=== PATIENT | female | born 1960 | race Caucasian/White ===

== ENCOUNTER 2018-07-02 11:11 | Inpatient (IN) | payer MEDICAID ==
[2018-07-02] MEDS ORDERED: Sodium Chloride 0.9% 1,000 ML IV ONE (11:39)
[2018-07-02] MEDS ORDERED: Sodium Chloride 0.9% 1,000 ML ONE (11:54)
[2018-07-02 12:08] LABS: INR 1.1; PROTHROMBIN TIME 12.2 SECONDS (9.7-12.2)
[2018-07-02 12:12] LABS: BASO # 0.1 K/uL (0.0-0.2); BASO % 1.2 % (0.0-2.0); EOS # 0.1 K/uL (0.0-0.7); EOS % 2.9 % (0.0-4.0); HEMOGLOBIN 7.4 g/dL (11.0-16.0); LYMPH # 1.4 K/uL (1.0-4.3); LYMPH % 28.9 % (20.0-40.0); MEAN CELL VOLUME 93.7 fL (81.0-99.0); MEAN PLATELET VOLUME 8.5 fL (7.2-11.7); MONO # 0.7 K/uL (0.0-0.8); MONO % 14.2 % (0.0-10.0); NEUT # 2.5 K/uL (1.8-7.0); NEUT % 52.8 % (50.0-75.0); NRBC % 0.1 % (0.0-2.0); RBC 2.47 Mil/uL (3.80-5.20); RED CELL DISTRIBUTION WIDTH 14.2 % (11.5-14.5); WHITE BLOOD COUNT 4.7 K/uL (4.8-10.8)
--- NOTE | 2018-07-02 12:13 | C.PDOC ---
History Of Present Illness 58 y/o female, w/PMhx of HTN, sent to the ER for admission for renal failure by her PMD, . Patient had bloodwork done, her BUN and Creatinine levels were very elevated. 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 P atient denies having fever, chills, CP, SOB, nausea, and vomiting. Time Seen by Provider: 07/02/18 11:35 Chief Complaint (Nursing): Medical Clearance History Per: Patient History/Exam Limitations: no limitations Past Medical History Reviewed: Historical Data, Nursing Documentation, Vital Signs Vital Signs: Last Vital Signs Temp 98.2 F 07/02/18 11:18 Pulse 92 H 07/02/18 11:18 Resp 16 07/02/18 11:18 BP 153/79 H 07/02/18 11:18 Pulse Ox 100 07/02/18 11:18 - Medical History PMH: Anemia, HTN Surgical History: No Surg Hx Family History: States: No Known Family Hx - Social History Hx Alcohol Use: No Hx Substance Use: No - Immunization History Hx Tetanus Toxoid Vaccination: No Hx Influenza Vaccination: No Hx Pneumococcal Vaccination: No Review Of Systems Except As Marked, All Systems Reviewed And Found Negative. Constitutional: Negative for: Fever, Chills Cardiovascular: Negative for: Chest Pain Respiratory: Negative for: Shortness of Breath Gastrointestinal: Negative for: Nausea, Vomiting Physical Exam - Physical Exam Appears: Non-toxic, No Acute Distress Skin: Normal Color, Warm, Dry Head: Atraumatic, Normacephalic Eye(s): bilateral: Normal Inspection Nose: Normal Oral Mucosa: Moist Neck: Supple Chest: Symmetrical Cardiovascular: Rhythm Regular Respiratory: Normal Breath Sounds, No Rales, No Rhonchi, No Wheezing Gastrointestinal/Abdominal: Normal Exam, Soft, No Tenderness, No Guarding, No Rebound Rectal: Heme Negative Neurological/Psych: Oriented x3, Normal Speech ED Course And Treatment - Laboratory Results Result Diagrams: 07/02/18 11:52 07/02/18 11:52 Lab Interpretation: Abnormal ECG: Interpreted By Me ECG Rhythm: Sinus Rhythm Rate From EC O2 Sat by Pulse Oximetry: 100 (RA) Pulse Ox Interpretation: Normal - Radiology CXR: Interpreted by Me CXR Interpretation: Yes: No Acute Disease Reassessment Condition: Unchanged - Physician Consult Information Physician Contacted: Lesvia Triplett Outcome Of Conversation: admit Medical Decision Making Medical Decision Making: Plan: --Labs --CXR --UA --IV Fluids Disposition Discussed With Dr.: Lesvia Triplett Doctor Will See Patient In The: Hospital - Disposition Disposition: HOSPITALIZED Disposition Time: 14:00 Condition: STABLE - POA Present On Arrival: None - Clinical Impression Clinical Impression: Anemia, Renal failure - 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 - Scribe Statement The provider has reviewed the documentation as [facility] the [facility] Provider Attestation All medical record entries made by the Karlieibmaria isabel were at my direction and personally dictated by me. I have reviewed the chart and agree that the record accurately reflects my personal performance of the history, physical exam, medical decision making, and the department course for this patient. I have also personally directed, reviewed, and agree with the discharge instructions and disposition. Decision To Admit - Pt Status Changed To: Hospital Disposition Of: Inpatient - Admit Certification Admit to Inpatient:: After my assessment, the patient will require hospitalization for at least two midnights. This is because of the severity of symptoms shown, intensity of services needed, and/or the medical risk in this patient being treated as an outpatient. - InPatient: Physician Admission Certification: I certify that this patient requires 2 or more midnights of care for the following reason:: Anemia. Renal failure - . Bed Request Type: Regular Patient Diagnosis: Anemia, Renal failure
[2018-07-02 12:15] LABS: ALB/GLOB RATIO 1.1 (1.0-2.1); ALBUMIN 4.4 g/dL (3.5-5.0); CALCIUM 8.8 mg/dl (8.6-10.4)
[2018-07-02] MEDS ORDERED: Sodium Chloride 0.9% 1,000 ML IV SCH (12:15)
[2018-07-02 12:27] LABS: CK-MB 2.19 ng/mL (0.0-3.38); TROPONIN I 0.015 ng/mL (0.00-0.120)
--- NOTE | 2018-07-02 13:04 | RAD ---
Date of service: 07/02/2018 HISTORY: Shortness of breath. COMPARISON: No prior. TECHNIQUE: Chest PA and lateral FINDINGS: LUNGS: No active pulmonary disease. PLEURA: No significant pleural effusion identified. No pneumothorax apparent. CARDIOVASCULAR: No aortic atherosclerotic calcification present No radiographic findings to suggest acute or significant cardiovascular disease. OSSEOUS STRUCTURES: No significant abnormalities. VISUALIZED UPPER ABDOMEN: Normal. OTHER FINDINGS: None. IMPRESSION: No active disease.
[2018-07-02 13:41] LABS: SQUAMOUS EPITHIAL 3 /hpf (0-5); URINE BACTERIA OCC (<OCC); URINE BILIRUBIN NEGATIVE (NEGATIVE); URINE BLOOD 1+ (NEGATIVE); URINE COLOR Straw (YELLOW); URINE GLUCOSE (UA) NORMAL (Normal); URINE LEUKOCYTE ESTERASE 3+ Leu/uL (Negative); URINE PROTEIN 2+ mg/dL (NEGATIVE); URINE UROBILINOGEN NORMAL mg/dL (0.2-1.0)
[2018-07-02 13:44] LABS: URINE CLARITY SLHAZY (Clear)
--- NOTE | 2018-07-02 15:20 | CP.PCM.HP ---
Addendum entered and electronically signed by Aleyda Sanders 07/02/18 16:53: restarted on home Norvasc for BP control. Original Note: <MarilynAleyda Aguilar - Last Filed: 07/02/18 16:23> History of Present Illness - History of Present Illness History of Present Illness: Ms. 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 She has been followed by Dr. Dietrich of [place] when two weeks ago, routine labwork showed elevated BUN/Cr. She was refered to Dr. Dueñas who told her to come to the hospital today. She has no complaints. She regularly urinates about 3-4 per day and once overnight. Over the last year, she reports poor appetite and will occasionally vomit immediately after eating. This happens about once a month and last occurred yesterday; all discomfort resolves immediately after vomiting. She does report stress incontinence and prefers to wear a pad year round to catch her urine when she coughs or sneezes. Also admits to urinary retention most days. Denies dysuria, recent sickness, sick contacts, headaches, dizziness, fainting, fevers. PMD: Karlo PMH: HTN, anemia, ventral hernia, stress incontinence Meds: Amlodipine 10mg po daily, Furosemide 40mg po daily All: NKDA FamHx: Mother - HTN, MGM - HTN SocHx: denies. 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 absent: Chills, Excessive Sweating, Fever, Headache, Increased Appetite, Lethargy, Night Sweats, Snoring, Weight Gain - EENT Eyes: absent: Blurred Vision, Diplopia, Discharge, Photophobia Ears: absent: Decreased Hearing, Ear Discharge, Tinnitus Nose/Mouth/Throat: absent: Change in Voice, Dry Mouth, Dysphagia, Halitosis, Hoarsness, Odynophagia - Cardiovascular Cardiovascular: Pedal Edema. absent: Chest Pain, Chest Pain at Rest, Chest Pain with Activity, Claudication, Dyspnea on Exertion, Edema, Leg Edema, Lightheadedness, Rapid Heart Rate, Slow Heart Rate, Syncope - Respiratory Respiratory: Pain with Coughing. absent: Cough, Dyspnea, Dyspnea on Exertion, Wheezing, Stridor, Pain on Inspiration, Chest Congestion, Excessive Mucous Production Additional comments: exacerbates existing hernia - Gastrointestinal Gastrointestinal: Early Satiety, Vomiting. absent: Abdominal Pain, Belching, Change in Bowel Habits, Coffee Ground Emesis, Constipation, Cramping, Diarrhea, Dyspepsia, Dysphagia, Excessive Flatus, Heartburn, Hematemesis, Nausea, Odynophagia, Temesmus - Genitourinary Genitourinary: Urinary Incontinence, Urinary Frequency. absent: Change in Urinary Stream, Difficulty Urinating, Dysuria, Flank Pain, Hematuria, Pyuria, Urinary Hesitance, Freq UTI - Reproductive: Female Reproductive:Female: Menopausal - Musculoskeletal Musculoskeletal: absent: Arthralgias, Myalgias, Numbness, Tingling - Integumentary Integumentary: Dry Skin. absent: Erythema, Rash, Sores - Neurological Neurological: absent: Abnormal Gait, Abnormal Hearing, Abnormal Speech, Behavioral Changes, Disequilibrium, Dizziness, Numbness, Headaches, Lack of Coordination, Tingling - Endocrine Endocrine: Fatigue - Hematologic/Lymphatic Hematologic: absent: Easy Bleeding, Easy Bruising Past Patient History - Past Medical History & Family History Pertinent Family History: mother - HTN MGM - HTN - Past Social History Smoking Status: Never Smoked Alcohol: None Drugs: Denies - CARDIAC Hx Hypertension: Yes - RENAL Hx Renal Failure: Yes - HEMATOLOGICAL/ONCOLOGICAL Hx Anemia: Yes - PSYCHIATRIC Hx Substance Use: No - SURGICAL HISTORY Hx Surgeries: No - ANESTHESIA Hx Anesthesia: No Meds Allergies/Adverse Reactions: Allergies Allergy/AdvReac Type Severity Reaction Status Date / Time No Known Allergies Allergy Verified 07/02/18 11:23 Physical Exam - Constitutional Appears: Well, No Acute Distress - Head Exam Head Exam: ATRAUMATIC, NORMOCEPHALIC - Eye Exam Eye Exam: EOMI, PERRL Pupil Exam: NORMAL ACCOMODATION - ENT Exam ENT Exam: Mucous Membranes Dry - Respiratory Exam Respiratory Exam: Clear to Auscultation Bilateral, NORMAL BREATHING PATTERN. absent: Rales, Rhonchi, Wheezes - Cardiovascular Exam Cardiovascular Exam: REGULAR RHYTHM, +S1, +S2. absent: Gallop, Rubs, Systolic Murmur - GI/Abdominal Exam GI & Abdominal Exam: Hernia, Normal Bowel Sounds, Soft. absent: Tenderness Additional comments: ventral hernia palpable, easily reducible - Exam External exam: NORMAL EXTERNAL EXAM Additional comments: pad to catch incontinence in place - Extremities Exam Extremities exam: Positive for: normal capillary refill, pedal edema Additional comments: 1+ non pitting edema bilaterally peripheral pulses palpable bilaterally (radial, DP, PT) IV access in R AC - Back Exam Back exam: absent: CVA tenderness (L), CVA tenderness (R) - Neurological Exam Neurological exam: Alert, CN II-XII Intact, Normal Gait, Oriented x3, Reflexes Normal - Psychiatric Exam Psychiatric exam: Normal Affect, Normal Mood - Skin Skin Exam: Dry, Intact, Normal Color, Warm Results - Vital Signs Recent Vital Signs: Last Vital Signs Temp 98.2 F 07/02/18 11:18 Pulse 92 H 07/02/18 14:19 Resp 20 07/02/18 14:19 BP 139/82 07/02/18 14:19 Pulse Ox 95 07/02/18 14:19 - Labs Result Diagrams: 07/02/18 11:52 07/02/18 11:52 Labs: Laboratory Results - last 24 hr 07/02/18 07/02/18 07/02/18 11:52 11:52 11:52 WBC 4.7 L RBC 2.47 L Hgb 7.4 L Hct 23.1 L MCV 93.7 MCH 30.0 MCHC 32.0 L RDW 14.2 Plt Count 308 MPV 8.5 Neut % (Auto) 52.8 Lymph % (Auto) 28.9 Elliott % (Auto) 14.2 H Eos % (Auto) 2.9 Baso % (Auto) 1.2 Neut # (Auto) 2.5 Lymph # (Auto) 1.4 Elliott # (Auto) 0.7 Eos # (Auto) 0.1 Baso # (Auto) 0.1 Retic Count PT 12.2 INR 1.1 Sodium 142 Potassium 5.3 H Chloride 105 Carbon Dioxide 20 L Anion Gap 22 H BUN 88 H Creatinine 6.5 H Est GFR ( Amer) 8 Est GFR (Non-Af Amer) 7 Random Glucose 78 Calcium 8.8 Ferritin Total Bilirubin 0.7 AST 31 ALT 31 Alkaline Phosphatase 161 H CK-MB (Mass) 2.19 Troponin I 0.0150 Total Protein 8.4 H Albumin 4.4 Globulin 4.0 H Albumin/Globulin Ratio 1.1 Urine Color Urine Clarity Urine pH Ur Specific [place] Urine Protein Urine Glucose (UA) Urine Ketones Urine Blood Urine Nitrate Urine Bilirubin Urine Urobilinogen Ur Leukocyte Esterase Urine WBC (Auto) Urine RBC (Auto) Ur Squamous Epith Cells Urine Bacteria Blood Type Antibody Screen 07/02/18 07/02/18 07/02/18 11:52 13:33 14:07 WBC RBC Hgb Hct MCV MCH MCHC RDW Plt Count MPV Neut % (Auto) Lymph % (Auto) Elliott % (Auto) Eos % (Auto) Baso % (Auto) Neut # (Auto) Lymph # (Auto) Elliott # (Auto) Eos # (Auto) Baso # (Auto) Retic Count 3.1 H PT INR Sodium Potassium Chloride Carbon Dioxide Anion Gap BUN Creatinine Est GFR ( Amer) Est GFR (Non-Af Amer) Random Glucose Calcium Ferritin Total Bilirubin AST ALT Alkaline Phosphatase CK-MB (Mass) Troponin I Total Protein Albumin Globulin Albumin/Globulin Ratio Urine Color Straw Urine Clarity [place] Urine pH 6.0 Ur Specific [place] 1.011 Urine Protein 2+ H Urine Glucose (UA) Normal Urine Ketones Negative Urine Blood 1+ H Urine Nitrate Negative Urine Bilirubin Negative Urine Urobilinogen Normal Ur Leukocyte Esterase 3+ H Urine WBC (Auto) 44 H Urine RBC (Auto) 17 H Ur Squamous Epith Cells 3 Urine Bacteria Occ H Blood Type O POSITIVE Antibody Screen Negative 07/02/18 14:07 WBC RBC Hgb Hct MCV MCH MCHC RDW Plt Count MPV Neut % (Auto) Lymph % (Auto) Elliott % (Auto) Eos % (Auto) Baso % (Auto) Neut # (Auto) Lymph # (Auto) Elliott # (Auto) Eos # (Auto) Baso # (Auto) Retic Count PT INR Sodium Potassium Chloride Carbon Dioxide Anion Gap BUN Creatinine Est GFR ( Amer) Est GFR (Non-Af Amer) Random Glucose Calcium Ferritin 103.0 Total Bilirubin AST ALT Alkaline Phosphatase CK-MB (Mass) Troponin I Total Protein Albumin Globulin Albumin/Globulin Ratio Urine Color Urine Clarity Urine pH Ur Specific [place] Urine Protein Urine Glucose (UA) Urine Ketones Urine Blood Urine Nitrate Urine Bilirubin Urine Urobilinogen Ur Leukocyte Esterase Urine WBC (Auto) Urine RBC (Auto) Ur Squamous Epith Cells Urine Bacteria Blood Type Antibody Screen - EKG Data EKG Interpreted by: ER Physician EKG shows normal: Sinus rhythm Assessment & Plan - Assessment and Plan (Free Text) Assessment: Ms. Gem Campa is a 58 year old [place] female PMH HTN, anemia, ventral hernia was referred to [facility] by her clay worker for abnormal labs. She's being treated for a UTI while renal workup is completed. Plan: Acute Renal Failure - unknown if Chronic condition or not, waiting on outpatient labs - EKG unremarkable on admission - CXR (07/02): no active disease - UA on admission: LE 3+, WBC 44, increased bacteria, protein 2+ - PT 12.2, INR 1.1 - Trop 0.0150 on admission - f/u US kidney - f/u Hepatitis panel - f/u Complement studies: C3, C4, total complement - f/u YANI, CRP, ESR, PT/INR - f/u lipid panel - f/u TSH - f/u repeat UA, urine Cx - strict I&Os, weight checks - correct electrolytes prn - Ceftriaxone 1gm IVPB daily (started 07/02: day 1) - Nephro consulted: Dr. Spenser pappas appreciated - Vascular Surgery consulted: Dr. Cosme - help appreciated AVF placement for future dialysis Anemia - H&H 7.4/23.1 on admission - known Hx of anemia - Retic count on admission: 3.1 - Ferritin 103.0 - Stool Occult Blood neg - Type and Screen done - f/u Iron studies: Fe, TIBC - trend with AM labs Hypertension - home Amlodipine 10mg po daily held for ARF - home Furosemide 40mg po daily held for ARF - monitor vitals PPx - DVT: Heparin 5000u sc q8, SCDs - GI: not indicated at this time - Diet: Renal diet - IVF held at this time - Dispo: TONY consulted for dialysis placement upon discharge d/w Dr. Anibal Sanders PGY-1 - Date & Time Date: 07/02/18 Time: 15:30 <Chichi Barnett - Last Filed: 07/04/18 17:25> Results - Vital Signs Recent Vital Signs: Last Vital Signs Temp 98 F 07/03/18 16:00 Pulse 90 10/25/18 16:00 Resp 20 07/03/18 16:00 BP 126/73 07/03/18 16:00 Pulse Ox 96 07/03/18 16:00 - Labs Result Diagrams: 07/04/18 08:27 07/04/18 08:27 Labs: Laboratory Results - last 24 hr 07/03/18 07/03/18 07/03/18 07:14 07:14 07:14 WBC 4.0 L RBC 2.40 L Hgb 7.5 L Hct 22.4 L MCV 93.4 MCH 31.1 H MCHC 33.3 RDW 14.4 Plt Count 313 MPV 8.6 Neut % (Auto) 57.0 Lymph % (Auto) 27.1 Elliott % (Auto) 11.9 H Eos % (Auto) 3.0 Baso % (Auto) 1.0 Neut # (Auto) 2.3 Lymph # (Auto) 1.1 Elliott # (Auto) 0.5 Eos # (Auto) 0.1 Baso # (Auto) 0.0 ESR 95 H PT INR Sodium 143 Potassium 5.1 Chloride 106 Carbon Dioxide 20 L Anion Gap 22 H BUN 82 H Creatinine 6.8 H Est GFR ( Amer) 8 Est GFR (Non-Af Amer) 6 Random Glucose 80 Calcium 8.7 Phosphorus 5.1 H Magnesium 1.4 L Total Bilirubin 0.6 AST 15 ALT 26 Alkaline Phosphatase 142 H C-Reactive Protein 7.70 Total Protein 7.8 Albumin 4.0 Globulin 3.8 Albumin/Globulin Ratio 1.1 Triglycerides 74 Cholesterol 130 LDL Cholesterol Direct 70 HDL Cholesterol 38 TSH 3rd Generation 1.56 Urine Color Urine Clarity Urine pH Ur Specific [place] Urine Protein Urine Glucose (UA) Urine Ketones Urine Blood Urine Nitrate Urine Bilirubin Urine Urobilinogen Ur Leukocyte Esterase Urine WBC (Auto) Urine RBC (Auto) Ur Squamous Epith Cells Urine Bacteria Complement C3 99.0 Complement C4 41.4 Hepatitis A IgM Ab Hep Bs Antigen Negative Hep B Core IgM Ab Hepatitis C Antibody 07/03/18 07/03/18 07/03/18 07:14 07:14 07:27 WBC RBC Hgb Hct MCV MCH MCHC RDW Plt Count MPV Neut % (Auto) Lymph % (Auto) Elliott % (Auto) Eos % (Auto) Baso % (Auto) Neut # (Auto) Lymph # (Auto) Elliott # (Auto) Eos # (Auto) Baso # (Auto) ESR PT 11.8 INR 1.1 Sodium Potassium Chloride Carbon Dioxide Anion Gap BUN Creatinine Est GFR ( Amer) Est GFR (Non-Af Amer) Random Glucose Calcium Phosphorus Magnesium Total Bilirubin AST ALT Alkaline Phosphatase C-Reactive Protein Total Protein Albumin Globulin Albumin/Globulin Ratio Triglycerides Cholesterol LDL Cholesterol Direct HDL Cholesterol TSH 3rd Generation Urine Color Straw Urine Clarity Clear Urine pH 6.0 Ur Specific [place] 1.011 Urine Protein 2+ H Urine Glucose (UA) Normal Urine Ketones Negative Urine Blood Negative Urine Nitrate Negative Urine Bilirubin Negative Urine Urobilinogen Normal Ur Leukocyte Esterase 1+ H Urine WBC (Auto) 22 H Urine RBC (Auto) 2 Ur Squamous Epith Cells 4 Urine Bacteria Rare Complement C3 Complement C4 Hepatitis A IgM Ab Negative Hep Bs Antigen Negative Hep B Core IgM Ab Negative Hepatitis C Antibody Negative Attending/Attestation - Attestation I have personally seen and examined this patient.: Yes I have fully participated in the care of the patient.: Yes I have reviewed all pertinent clinical information: Yes Notes (Text): Seen and examined Patient has renal failure,Acute ?,Likely chronic renal failure due to HTN Denies nause,no vomting,no pruritus continue amlodipine d/w Dr Dueñas Assessment and the plan discussed with the resident and I agree with the documentation
--- NOTE | 2018-07-02 16:53 | CP.PCM.CON ---
History of Present Illness - History of Present Illness History of Present Illness: Vascular surgery consult not for Dr. Cosme Consulted for: PAPO, AVF planning Pt is a 58 y/o female, PMH of HTN, and chronic asymptomatic ventral hernia. Pt was having anual check up and was found to have asymptomatic increased BUN and creatinine (88 & 6.5) and was referred to the ED by per rn neonatal. Upon admission to the ED, she was found to have a UTI but denies any urinary symptoms. As per pt, she is not experiencing any acute pain. She admits to "flu" like illness, including bouts of vomiting and nausea, that ended 2 days ago (06/30/18). In addition, she reports some leg swelling (mild), SOB, and cough. She denies fever, chills, chest pain, palpitations, diarrhea, constipation, pain/burning with urination, or low back pain. She has never had any prior episodes of PAPO per primary PMH: HTN, anemia, chronic asymptomatic ventral hernia (from ) PSH: denies Allergies: denies Social: denies any current or prior tobacco use; denies alcohol Review of Systems - Review of Systems All systems: reviewed and no additional remarkable complaints except (as per HPI) Past Patient History - Past Medical History & Family History Past Medical History?: Yes Past Family History: Reviewed and not pertinent - Past Social History Smoking Status: Never Smoked Alcohol: None Drugs: Denies - CARDIAC Hx Hypertension: Yes - RENAL Hx Renal Failure: Yes - HEMATOLOGICAL/ONCOLOGICAL Hx Anemia: Yes - PSYCHIATRIC Hx Substance Use: No - SURGICAL HISTORY Hx Surgeries: No - ANESTHESIA Hx Anesthesia: No Meds Allergies/Adverse Reactions: Allergies Allergy/AdvReac Type Severity Reaction Status Date / Time No Known Allergies Allergy Verified 07/02/18 11:23 - Medications Medications: Current Medications Heparin Sodium (Porcine) (Heparin) 5,000 units SC Q8 GEENA Ceftriaxone Sodium 1 gm/ (Sodium Chloride) 100 mls @ 100 mls/hr IVPB DAILY GEENA; Protocol Physical Exam - Constitutional Appears: Well, Non-toxic, No Acute Distress - Head Exam Head Exam: ATRAUMATIC, NORMOCEPHALIC - Eye Exam Eye Exam: Normal appearance. absent: Conjunctival injection, Scleral icterus - ENT Exam ENT Exam: Mucous Membranes Moist, Normal Oropharynx - Respiratory Exam Respiratory Exam: NORMAL BREATHING PATTERN. absent: Accessory Muscle Use, Res piratory Distress - Cardiovascular Exam Cardiovascular Exam: RRR - GI/Abdominal Exam GI & Abdominal Exam: Hernia (soft, non-tender ventral hernia), Soft. absent: Distended, Tenderness - Extremities Exam Extremities exam: Positive for: pedal pulses present. Negative for: calf tende rness, pedal edema - Neurological Exam Neurological exam: Alert, Oriented x3 - Psychiatric Exam Psychiatric exam: Normal Affect, Normal Mood - Skin Skin Exam: Dry, Normal Color, Warm Results - Vital Signs Recent Vital Signs: Last Vital Signs Temp 98.1 F 07/02/18 16:00 Pulse 91 H 07/02/18 16:00 Resp 20 07/02/18 16:00 BP 161/86 H 07/02/18 16:00 Pulse Ox 98 07/02/18 16:00 - Labs Result Diagrams: 07/02/18 11:52 07/02/18 11:52 Labs: Laboratory Results - last 24 hr 07/02/18 07/02/18 07/02/18 11:52 11:52 11:52 WBC 4.7 L RBC 2.47 L Hgb 7.4 L Hct 23.1 L MCV 93.7 MCH 30.0 MCHC 32.0 L RDW 14.2 Plt Count 308 MPV 8.5 Neut % (Auto) 52.8 Lymph % (Auto) 28.9 [place] % (Auto) 14.2 H Eos % (Auto) 2.9 Baso % (Auto) 1.2 Neut # (Auto) 2.5 Lymph # (Auto) 1.4 Weston # (Auto) 0.7 Eos # (Auto) 0.1 Baso # (Auto) 0.1 Retic Count PT 12.2 INR 1.1 Sodium 142 Potassium 5.3 H Chloride 105 Carbon Dioxide 20 L Anion Gap 22 H BUN 88 H Creatinine 6.5 H Est GFR ( Amer) 8 Est GFR (Non-Af Amer) 7 Random Glucose 78 Calcium 8.8 Ferritin Total Bilirubin 0.7 AST 31 ALT 31 Alkaline Phosphatase 161 H CK-MB (Mass) 2.19 Troponin I 0.0150 Total Protein 8.4 H Albumin 4.4 Globulin 4.0 H Albumin/Globulin Ratio 1.1 Urine Color Urine Clarity Urine pH Ur Specific [place] Urine Protein Urine Glucose (UA) Urine Ketones Urine Blood Urine Nitrate Urine Bilirubin Urine Urobilinogen Ur Leukocyte Esterase Urine WBC (Auto) Urine RBC (Auto) Ur Squamous Epith Cells Urine Bacteria Stool Occult Blood Blood Type Antibody Screen 07/02/18 07/02/18 07/02/18 11:52 13:33 14:07 WBC RBC Hgb Hct MCV MCH MCHC RDW Plt Count MPV Neut % (Auto) Lymph % (Auto) West[place] % (Auto) Eos % (Auto) Baso % (Auto) Neut # (Auto) Lymph # (Auto) [place] # (Auto) Eos # (Auto) Baso # (Auto) Retic Count 3.1 H PT INR Sodium Potassium Chloride Carbon Dioxide Anion Gap BUN Creatinine Est GFR ( Amer) Est GFR (Non-Af Amer) Random Glucose Calcium Ferritin Total Bilirubin AST ALT Alkaline Phosphatase CK-MB (Mass) Troponin I Total Protein Albumin Globulin Albumin/Globulin Ratio Urine Color Straw Urine Clarity [place] Urine pH 6.0 Ur Specific [place] 1.011 Urine Protein 2+ H Urine Glucose (UA) Normal Urine Ketones Negative Urine Blood 1+ H Urine Nitrate Negative Urine Bilirubin Negative Urine Urobilinogen Normal Ur Leukocyte Esterase 3+ H Urine WBC (Auto) 44 H Urine RBC (Auto) 17 H Ur Squamous Epith Cells 3 Urine Bacteria Occ H Stool Occult Blood Blood Type O POSITIVE Antibody Screen Negative 07/02/18 07/02/18 14:07 15:12 WBC RBC Hgb Hct MCV MCH MCHC RDW Plt Count MPV Neut % (Auto) Lymph % (Auto) [place] % (Auto) Eos % (Auto) Baso % (Auto) Neut # (Auto) Lymph # (Auto) [place] # (Auto) Eos # (Auto) Baso # (Auto) Retic Count PT INR Sodium Potassium Chloride Carbon Dioxide Anion Gap BUN Creatinine Est GFR ( Amer) Est GFR (Non-Af Amer) Random Glucose Calcium Ferritin 103.0 Total Bilirubin AST ALT Alkaline Phosphatase CK-MB (Mass) Troponin I Total Protein Albumin Globulin Albumin/Globulin Ratio Urine Color Urine Clarity Urine pH Ur Specific [place] Urine Protein Urine Glucose (UA) Urine Ketones Urine Blood Urine Nitrate Urine Bilirubin Urine Urobilinogen Ur Leukocyte Esterase Urine WBC (Auto) Urine RBC (Auto) Ur Squamous Epith Cells Urine Bacteria Stool Occult Blood Negative Blood Type Antibody Screen Assessment & Plan - Assessment and Plan (Free Text) Assessment: 58F with PAPO Plan: Left limb alert F/U vein mapping F/U nephrology recs Continue medical management per primary Discussed with Dr. Carmelina Maria, PGY2
[2018-07-02 17:15] LABS: IRON 40 ug/dL (37-170)
--- NOTE | 2018-07-02 17:19 | US ---
Abdominal limited/renal ultrasound Indication: Acute renal failure Comparison: None available. Findings: The liver appears within normal limits of size measuring approximately 17.4cm. Echogenic liver may be seen in setting of hepatic parenchymal disease or fatty infiltration. The main portal vein appears patent with normal directional flow. There is no evidence of intrahepatic ductal dilatation. The common bile duct appears within normal limits of caliber, measuring 6 mm. Gallstones. There is no evidence of gallbladder-wall thickening, pericholecystic fluid, or stones. The patient was not focally tender over the gallbladder. The pancreas was not visualized. The right kidney measures 9.6 x 4.2 x 4.7 cm and is without evidence of stones or hydronephrosis. Echogenic renal parenchyma. The left kidney measures 8.9 x 5.0 x 4.4 cm and is without evidence of stones or hydronephrosis. Echogenic renal parenchyma. Limited visualization of the abdominal aorta and IVC appear grossly unremarkable. Images of the urinary bladder were not provided. Impression: Echogenic liver may be seen in setting of hepatic parenchymal disease or fatty infiltration. Cholelithiasis. Echogenic renal kidneys may be seen in the setting of medical renal disease. Cholelithiasis. Additional findings as above.
[2018-07-02 17:25] LABS: % IRON SATURATION 13 (20-55); TOTAL IRON BINDING CAPACITY 316 ug/dL (250-450)
[2018-07-03 07:31] LABS: EOS # 0.1 K/uL (0.0-0.7); HEMOGLOBIN 7.5 g/dL (11.0-16.0); LYMPH # 1.1 K/uL (1.0-4.3); LYMPH % 27.1 % (20.0-40.0); MEAN CELL VOLUME 93.4 fL (81.0-99.0); MEAN CORPUSCULAR HEMOGLOBIN 31.1 pg (27.0-31.0); MEAN CORPUSCULAR HGB CONC 33.3 g/dL (33.0-37.0); MEAN PLATELET VOLUME 8.6 fL (7.2-11.7); MONO # 0.5 K/uL (0.0-0.8); MONO % 11.9 % (0.0-10.0); NEUT # 2.3 K/uL (1.8-7.0); RBC 2.4 Mil/uL (3.80-5.20); RED CELL DISTRIBUTION WIDTH 14.4 % (11.5-14.5)
[2018-07-03 07:36] LABS: INR 1.1; PROTHROMBIN TIME 11.8 SECONDS (9.7-12.2)
[2018-07-03 07:41] LABS: COMPLEMENT C4 41.4 mg/dL (14.0-44.0)
[2018-07-03 07:46] LABS: LDL CHOLESTEROL 70 mg/dL (0-129)
[2018-07-03 08:04] LABS: ALB/GLOB RATIO 1.1 (1.0-2.1); ALT/SGPT 26 U/L (9-52); AST/SGOT 15 U/L (14-36); BLOOD UREA NITROGEN 82 mg/dL (7-17); CALCIUM 8.7 mg/dl (8.6-10.4); GFR NON-AFRICAN AMERICAN 6; HDL CHOLESTEROL 38 mg/dL (30-70)
[2018-07-03 08:06] LABS: HEPATITIS B SURFACE AG Negative (NEGATIVE)
[2018-07-03 08:08] LABS: HEPATITIS B SURFACE AG Negative (NEGATIVE)
[2018-07-03 08:11] LABS: HEPATITIS A IGM NEGATIVE (NEGATIVE); HEPATITIS B CORE AB NEGATIVE (NEGATIVE)
--- NOTE | 2018-07-03 08:15 | CP.PCM.PN ---
Subjective - Date & Time of Evaluation Date of Evaluation: 07/03/18 Time of Evaluation: 08:12 - Subjective Subjective: Surgery PT seen and examined. No acute events. Pt voiding. Cr elevated. Denies fever, nausea, MENDIOLA, vomiting. Objective - Vital Signs/Intake and Output Vital Signs (last 24 hours): Temp Pulse Resp BP Pulse Ox 97.9 F 97 H 20 122/79 96 07/03/18 00:00 07/03/18 00:00 07/03/18 00:00 07/03/18 00:00 07/03/18 00:00 Intake and Output: 07/03/18 07/03/18 06:59 18:59 Intake Total 150 Balance 150 - Medications Medications: Current Medications Amlodipine Besylate (Norvasc) 10 mg PO DAILY [facility] Last Admin: 07/02/18 17:37 Dose: 10 mg Heparin Sodium (Porcine) (Heparin) 5,000 units SC Q8 [facility] Ceftriaxone Sodium 1 gm/ (Sodium Chloride) 100 mls @ 100 mls/hr IVPB Q24H [facility]; Protocol Last Admin: 07/02/18 18:42 Dose: 100 mls/hr Influenza Virus Vaccine (Fluzone Quad [id number]) 60 mcg IM .ONCE ONE Stop: 07/04/18 10:01 Pneumococcal Polyvalent Vaccine (Pneumovax 23 Vaccine) 0.5 ml IM .ONCE ONE Stop: 07/04/18 10:01 - Labs Labs: 07/03/18 07:14 07/03/18 07:14 PT 11.8 SECONDS (9.7-12.2) 07/03/18 07:14 INR 1.1 07/03/18 07:14 - Constitutional Appears: No Acute Distress - Head Exam Head Exam: ATRAUMATIC, NORMAL INSPECTION, NORMOCEPHALIC - Eye Exam Eye Exam: EOMI, Normal appearance, PERRL Pupil Exam: NORMAL ACCOMODATION, PERRL - ENT Exam ENT Exam: Mucous Membranes Moist, Normal Exam - Neck Exam Neck Exam: Full ROM, Normal Inspection. absent: Lymphadenopathy - Respiratory Exam Respiratory Exam: NORMAL BREATHING PATTERN - Cardiovascular Exam Cardiovascular Exam: REGULAR RHYTHM - GI/Abdominal Exam GI & Abdominal Exam: Soft. absent: Distended, Tenderness - Extremities Exam Extremities Exam: Full ROM, Normal Inspection - Back Exam Back Exam: NORMAL INSPECTION - Neurological Exam Neurological Exam: Alert, Awake, CN II-XII Intact, Normal Gait, Oriented x3 - Psychiatric Exam Psychiatric exam: Normal Affect, Normal Mood - Skin Skin Exam: Dry, Intact, Normal Color, Warm Assessment and Plan - Assessment and Plan (Free Text) Assessment: 58F with PAPO Plan: Left limb alert F/U vein mapping F/U nephrology recs Continue medical management per primary Will Discuss with Dr. Cosme
[2018-07-03 08:23] LABS: HEPATITIS C ANTIBODY NEGATIVE (NEGATIVE)
[2018-07-03 08:24] LABS: SQUAMOUS EPITHIAL 4 /hpf (0-5); URINE BACTERIA RARE (<OCC); URINE BILIRUBIN NEGATIVE (NEGATIVE); URINE BLOOD NEGATIVE (NEGATIVE); URINE CLARITY Clear (Clear); URINE COLOR Straw (YELLOW); URINE GLUCOSE (UA) NORMAL (Normal); URINE LEUKOCYTE ESTERASE 1+ Leu/uL (Negative); URINE PROTEIN 2+ mg/dL (NEGATIVE); URINE UROBILINOGEN NORMAL mg/dL (0.2-1.0)
--- NOTE | 2018-07-03 09:36 | CP.PCM.PN ---
Addendum entered and electronically signed by Derik Sin DO 07/03/18 16:34: As per Dr Felipe everett to be scheduled for Saturday Original Note: <Derik Sin - Last Filed: 07/03/18 09:39> Subjective - Date & Time of Evaluation Date of Evaluation: 07/03/18 Time of Evaluation: 09:33 - Subjective Subjective: Hospitalist Note Pt seen and examined at bedside. Pt reports feeling much better emotionally and less nervous than yesterday. Pt reported normal urine output color and no pain. Pt denies cp sob fc nv. Objective - Vital Signs/Intake and Output Vital Signs (last 24 hours): Temp Pulse Resp BP Pulse Ox 97.7 F 89 20 143/75 96 07/03/18 07:13 07/03/18 07:13 07/03/18 07:13 07/03/18 07:13 07/03/18 07:13 Intake and Output: 07/03/18 07/03/18 06:59 18:59 Intake Total 150 Balance 150 - Medications Medications: Current Medications Amlodipine Besylate (Norvasc) 10 mg PO DAILY [facility] Last Admin: 07/02/18 17:37 Dose: 10 mg Heparin Sodium (Porcine) (Heparin) 5,000 units SC Q8 [facility] Ceftriaxone Sodium 1 gm/ (Sodium Chloride) 100 mls @ 100 mls/hr IVPB Q24H [facility]; Protocol Last Admin: 07/02/18 18:42 Dose: 100 mls/hr Influenza Virus Vaccine (Fluzone Quad [id number]) 60 mcg IM .ONCE ONE Stop: 07/04/18 10:01 Pneumococcal Polyvalent Vaccine (Pneumovax 23 Vaccine) 0.5 ml IM .ONCE ONE Stop: 07/04/18 10:01 - Labs Labs: 07/03/18 07:14 07/03/18 07:14 PT 11.8 SECONDS (9.7-12.2) 07/03/18 07:14 INR 1.1 07/03/18 07:14 - Constitutional Appears: Well, Non-toxic, No Acute Distress - Head Exam Head Exam: ATRAUMATIC, NORMAL INSPECTION - Eye Exam Eye Exam: EOMI, Normal appearance. absent: Scleral icterus - ENT Exam ENT Exam: Mucous Membranes Moist - Neck Exam Neck Exam: Full ROM. absent: Tenderness - Respiratory Exam Respiratory Exam: Clear to Ausculation Bilateral, NORMAL BREATHING PATTERN. absent: Wheezes - Cardiovascular Exam Cardiovascular Exam: RRR, +S1, +S2 - GI/Abdominal Exam GI & Abdominal Exam: Soft, Normal Bowel Sounds. absent: Distended, Tenderness, Pulsatile Mass - Back Exam Back Exam: absent: CVA tenderness (L), CVA tenderness (R) - Neurological Exam Neurological Exam: Alert, Awake, CN II-XII Intact, Oriented x3 - Psychiatric Exam Psychiatric exam: Normal Affect, Normal Mood - Skin Skin Exam: Dry, Normal Color, Warm Assessment and Plan - Assessment and Plan (Free Text) Assessment: Ms. Gem Campa is a 58 year old Irish female PMH HTN, anemia, ventral hernia was referred to [facility] by her yarn finisher for abnormal labs. She's being treated for a UTI while renal workup is completed. Plan: Acute Renal Failure - unknown if Chronic condition or not, waiting on outpatient labs - EKG unremarkable on admission - CXR (07/02): no active disease - UA on admission: LE 3+, WBC 44, increased bacteria, protein 2+ - US kidney: unremarkable - Neg Hepatitis panel - Complement studies: C3 99, C4 41 - f/u YANI, CRP, ESR, PT/INR - normal lipid panel - normal TSH - f/u repeat UA, urine Cx - strict I&Os, weight checks - correct electrolytes prn - Ceftriaxone 1gm IVPB daily (started 07/02: day 1) - Nephro consulted: Dr. Spenser pappas appreciated - Vascular Surgery consulted: Dr. Cosme - help appreciated AVF placement for future dialysis Anemia - H&H 7.4/23.1 on admission - known Hx of anemia - Retic count on admission: 3.1 - Ferritin 103.0 - Stool Occult Blood neg - Type and Screen done - normal Iron studies: Fe, TIBC - trend with AM labs Hypertension - home Amlodipine 10mg po daily held for ARF - home Furosemide 40mg po daily held for ARF - monitor vitals PPx - DVT: Heparin 5000u sc q8, SCDs - GI: not indicated at this time - Diet: Renal diet - IVF held at this time - Dispo: SW consulted for dialysis placement upon discharge d/w Dr. Barnett <Chichi Barnett - Last Filed: 07/04/18 17:23> Objective - Vital Signs/Intake and Output Vital Signs (last 24 hours): Temp Pulse Resp BP Pulse Ox 98.1 F 92 H 20 129/79 94 L 07/04/18 15:18 07/04/18 15:18 07/04/18 15:18 07/04/18 15:18 07/04/18 15:18 Intake and Output: 07/04/18 07/04/18 06:59 18:59 Intake Total 500 Output Total 300 Balance 200 - Medications Medications: Current Medications Amlodipine Besylate (Norvasc) 10 mg PO DAILY [facility] Last Admin: 07/04/18 09:22 Dose: 10 mg Heparin Sodium (Porcine) (Heparin) 5,000 units SC Q8 [facility] Last Admin: 07/04/18 13:19 Dose: 5,000 units Ceftriaxone Sodium 1 gm/ (Sodium Chloride) 100 mls @ 100 mls/hr IVPB Q24H [facility]; Protocol Stop: 07/05/18 15:00 Last Admin: 07/04/18 17:15 Dose: 100 mls/hr Ferric Sodium Gluconate Complex 125 mg/ Sodium Chloride 110 mls @ 110 mls/hr IVPB DAILY [facility] Stop: 07/12/18 11:01 Last Admin: 07/04/18 11:25 Dose: 110 mls/hr Sevelamer Carbonate (Renvela) 800 mg PO TIDCC [facility] Last Admin: 07/04/18 17:15 Dose: 800 mg - Labs Labs: 07/04/18 08:27 07/04/18 08:27 PT 11.8 SECONDS (9.7-12.2) 07/03/18 07:14 INR 1.1 07/03/18 07:14 Attending/Attestation - Attestation I have personally seen and examined this patient.: Yes I have fully participated in the care of the patient.: Yes I have reviewed all pertinent clinical information, including history, physical exam and plan: Yes Notes (Text): Seen and examined by me. Patient has renal failure likely chronic renal failure secondary to hypertension No nausea,no sob,no edema,no pruritus continue amlodipine we will follow with yarn finisher. going for a-v graft on Saturday by surgery . s/p Vein mapping continue renal diet and water restriction d/w resident and I agree with the documentation
--- NOTE | 2018-07-03 23:14 | CP.PCM.CON ---
History of Present Illness - History of Present Illness History of Present Illness: Reasons for consult : Advanced CKD r/o PAPO Severe anemia of CKD .. Also r/o othher causes like iron deff Pt was refered to me by Dr Dietrich last MON for PAPO Vs CKD .. Dr Dietrich idea that p t probably has hypertensise nephrosclerosis pt heard of kidney failure only last Fri by Dr Dietrich her PMD who called immediately and I saw pt on Sat Ms. 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 She has been followed by Dr. Dietrich of [place] when two weeks ago, routine labwork showed elevated BUN/Cr. She was refered to Dr. Dueñas who told her to come to the hospital today. She has no complaints. She regularly urinates about 3-4 per day and once overnight. Over the last year, she reports poor appetite and will occasionally vomit immediately after eating. This happens about once a month and last occurred yesterday; all discomfort resolves immediately after vomiting. She does report stress incontinence and prefers to wear a pad year round to catch her urine when she coughs or sneezes. Also admits to urinary retention most days. Denies dysuria, recent sickness, sick contacts, headaches, dizziness, fainting, fevers. PMD: Karlo PMH: HTN, anemia, ventral hernia, stress incontinence Meds: Amlodipine 10mg po daily, Furosemide 40mg po daily All: NKDA FamHx: Mother - HTN, MGM - HTN SocHx: denies. 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 absent: Chills, Excessive Sweating, Fever, Headache, Increased Appetite, Lethargy, Night Sweats, Snoring, Weight Gain - EENT Eyes: absent: Blurred Vision, Diplopia, Discharge, Photophobia Ears: absent: Decreased Hearing, Ear Discharge, Tinnitus Nose/Mouth/Throat: absent: Change in Voice, Dry Mouth, Dysphagia, Halitosis, Hoarsness, Odynophagia - Cardiovascular Cardiovascular: Pedal Edema. absent: Chest Pain, Chest Pain at Rest, Chest Pain with Activity, Claudication, Dyspnea on Exertion, Edema, Leg Edema, Lightheadedness, Rapid Heart Rate, Slow Heart Rate, Syncope - Respiratory Respiratory: Pain with Coughing. absent: Cough, Dyspnea, Dyspnea on Exertion, Wheezing, Stridor, Pain on Inspiration, Chest Congestion, Excessive Mucous Production Additional comments: exacerbates existing hernia - Gastrointestinal Gastrointestinal: Early Satiety, Vomiting. absent: Abdominal Pain, Belching, Change in Bowel Habits, Coffee Ground Emesis, Constipation, Cramping, Diarrhea, Dyspepsia, Dysphagia, Excessive Flatus, Heartburn, Hematemesis, Nausea, Odynoph agia, Temesmus - Genitourinary Genitourinary: Urinary Incontinence, Urinary Frequency. absent: Change in Urinary Stream, Difficulty Urinating, Dysuria, Flank Pain, Hematuria, Pyuria, Urinary Hesitance, Freq UTI - Reproductive: Female Reproductive:Female: Menopausal - Musculoskeletal Musculoskeletal: absent: Arthralgias, Myalgias, Numbness, Tingling - Integumentary Integumentary: Dry Skin. absent: Erythema, Rash, Sores - Neurological Neurological: absent: Abnormal Gait, Abnormal Hearing, Abnormal Speech, Behavioral Changes, Disequilibrium, Dizziness, Numbness, Headaches, Lack of Coordination, Tingling - Endocrine Endocrine: Fatigue - Hematologic/Lymphatic Hematologic: absent: Easy Bleeding, Easy Bruising Past Patient History - Past Medical History & Family History Pertinent Family History: mother - HTN MGM - HTN - Past Social History Smoking Status: Never Smoked Alcohol: None Drugs: Denies - CARDIAC Hx Hypertension: Yes - RENAL Hx Renal Failure: Yes - HEMATOLOGICAL/ONCOLOGICAL Hx Anemia: Yes - PSYCHIATRIC Hx Substance Use: No - SURGICAL HISTORY Hx Surgeries: No Past Patient History - Past Medical History & Family History Past Medical History?: Yes - Past Social History Smoking Status: Never Smoked Alcohol: None Drugs: Denies - CARDIAC Hx Hypertension: Yes - RENAL Hx Renal Failure: Yes - HEMATOLOGICAL/ONCOLOGICAL Hx Anemia: Yes - MUSCULOSKELETAL/RHEUMATOLOGICAL Hx Falls: No - PSYCHIATRIC Hx Substance Use: No - SURGICAL HISTORY Hx Surgeries: No - ANESTHESIA Hx Anesthesia: No Meds Allergies/Adverse Reactions: Allergies Allergy/AdvReac Type Severity Reaction Status Date / Time No Known Allergies Allergy Verified 07/02/18 11:23 - Medications Medications: Current Medications Amlodipine Besylate (Norvasc) 10 mg PO DAILY [facility] Last Admin: 07/03/18 10:36 Dose: 10 mg Heparin Sodium (Porcine) (Heparin) 5,000 units SC Q8 [facility] Last Admin: 07/03/18 22:07 Dose: 5,000 units Ceftriaxone Sodium 1 gm/ (Sodium Chloride) 100 mls @ 100 mls/hr IVPB Q24H [facility]; Protocol Last Admin: 07/03/18 17:09 Dose: 100 mls/hr Influenza Virus Vaccine (Fluzone Quad [id number]) 60 mcg IM .ONCE ONE Stop: 07/04/18 10:01 Pneumococcal Polyvalent Vaccine (Pneumovax 23 Vaccine) 0.5 ml IM .ONCE ONE Stop: 07/04/18 10:01 Results - Vital Signs Recent Vital Signs: Last Vital Signs Temp 98 F 07/03/18 16:00 Pulse 90 07/03/18 16:00 Resp 20 07/03/18 16:00 BP 126/73 07/03/18 16:00 Pulse Ox 96 07/03/18 16:00 - Labs Result Diagrams: 07/03/18 07:14 07/03/18 07:14 Labs: Laboratory Results - last 24 hr 07/03/18 07/03/18 07/03/18 07:14 07:14 07:14 WBC 4.0 L RBC 2.40 L Hgb 7.5 L Hct 22.4 L MCV 93.4 MCH 31.1 H MCHC 33.3 RDW 14.4 Plt Count 313 MPV 8.6 Neut % (Auto) 57.0 Lymph % (Auto) 27.1 [place] % (Auto) 11.9 H Eos % (Auto) 3.0 Baso % (Auto) 1.0 Neut # (Auto) 2.3 Lymph # (Auto) 1.1 [place] # (Auto) 0.5 Eos # (Auto) 0.1 Baso # (Auto) 0.0 ESR 95 H PT INR Sodium 143 Potassium 5.1 Chloride 106 Carbon Dioxide 20 L Anion Gap 22 H BUN 82 H Creatinine 6.8 H Est GFR ( Amer) 8 Est GFR (Non-Af Amer) 6 Random Glucose 80 Calcium 8.7 Phosphorus 5.1 H Magnesium 1.4 L Total Bilirubin 0.6 AST 15 ALT 26 Alkaline Phosphatase 142 H C-Reactive Protein 7.70 Total Protein 7.8 Albumin 4.0 Globulin 3.8 Albumin/Globulin Ratio 1.1 Triglycerides 74 Cholesterol 130 LDL Cholesterol Direct 70 HDL Cholesterol 38 TSH 3rd Generation 1.56 Urine Color Urine Clarity Urine pH Ur Specific [place] Urine Protein Urine Glucose (UA) Urine Ketones Urine Blood Urine Nitrate Urine Bilirubin Urine Urobilinogen Ur Leukocyte Esterase Urine WBC (Auto) Urine RBC (Auto) Ur Squamous Epith Cells Urine Bacteria Complement C3 99.0 Complement C4 41.4 Hepatitis A IgM Ab Hep Bs Antigen Negative Hep B Core IgM Ab Hepatitis C Antibody 07/03/18 07/03/18 07/03/18 07:14 07:14 07:27 WBC RBC Hgb Hct MCV MCH MCHC RDW Plt Count MPV Neut % (Auto) Lymph % (Auto) [place] % (Auto) Eos % (Auto) Baso % (Auto) Neut # (Auto) Lymph # (Auto) [place] # (Auto) Eos # (Auto) Baso # (Auto) ESR PT 11.8 INR 1.1 Sodium Potassium Chloride Carbon Dioxide Anion Gap BUN Creatinine Est GFR ( Amer) Est GFR (Non-Af Amer) Random Glucose Calcium Phosphorus Magnesium Total Bilirubin AST ALT Alkaline Phosphatase C-Reactive Protein Total Protein Albumin Globulin Albumin/Globulin Ratio Triglycerides Cholesterol LDL Cholesterol Direct HDL Cholesterol TSH 3rd Generation Urine Color Straw Urine Clarity Clear Urine pH 6.0 Ur Specific [place] 1.011 Urine Protein 2+ H Urine Glucose (UA) Normal Urine Ketones Negative Urine Blood Negative Urine Nitrate Negative Urine Bilirubin Negative Urine Urobilinogen Normal Ur Leukocyte Esterase 1+ H Urine WBC (Auto) 22 H Urine RBC (Auto) 2 Ur Squamous Epith Cells 4 Urine Bacteria Rare Complement C3 Complement C4 Hepatitis A IgM Ab Negative Hep Bs Antigen Negative Hep B Core IgM Ab Negative Hepatitis C Antibody Negative Assessment & Plan - Assessment and Plan (Free Text) Assessment: Probably CKD related to htn nephrosclerosis .. R/O PGN HYPERCHOGENECITY ON RENAL SONO SPEAKS FOR CHRONICITY Anemia of CKD .. Irone studdies are low .. lwo Saturation needs repletion with IV Iron ivss before we start EPO trx H/O HTN P : renal diet .. 2gr NA .. 2 Gr k .. 50 gr protien c/o norvasc for htn the rest of serologies r pending for AVF for future HD SW to help pt : Medicaid ? Day care Start Renvela 800 mg po after each meal check Vit d 25 total and PTH .. Initial VIt D D/w DO resident will F/U - Date & Time Date: 07/03/18 Time: 18:00
--- NOTE | 2018-07-04 07:30 | CP.PCM.PN ---
Subjective - Date & Time of Evaluation Date of Evaluation: 07/04/18 Time of Evaluation: 06:55 - Subjective Subjective: Surgery progress note for Dr. Cosme Patient examined at bedside. No acute events overnight. Patient reports she wants to stay in the hospital until she can have her surgery Saturday. Patient reports she is urinating well, denies headache, difficulty breathing, chest pain, abdominal pain, nausea, diarrhea. Objective - Vital Signs/Intake and Output Vital Signs (last 24 hours): Temp Pulse Resp BP Pulse Ox 98.3 F 93 H 20 112/69 97 07/04/18 00:00 07/04/18 00:00 07/04/18 00:00 07/04/18 00:00 07/04/18 00:00 Intake and Output: 07/04/18 07/04/18 06:59 18:59 Intake Total 500 Output Total 300 Balance 200 - Medications Medications: Current Medications Amlodipine Besylate (Norvasc) 10 mg PO DAILY [facility] Last Admin: 07/03/18 10:36 Dose: 10 mg Heparin Sodium (Porcine) (Heparin) 5,000 units SC Q8 [facility] Last Admin: 07/04/18 06:01 Dose: 5,000 units Ceftriaxone Sodium 1 gm/ (Sodium Chloride) 100 mls @ 100 mls/hr IVPB Q24H [facility]; Protocol Last Admin: 07/03/18 17:09 Dose: 100 mls/hr Influenza Virus Vaccine (Fluzone Quad [id number]) 60 mcg IM .ONCE ONE Stop: 07/04/18 10:01 Pneumococcal Polyvalent Vaccine (Pneumovax 23 Vaccine) 0.5 ml IM .ONCE ONE Stop: 07/04/18 10:01 - Labs Labs: 07/03/18 07:14 07/03/18 07:14 PT 11.8 SECONDS (9.7-12.2) 07/03/18 07:14 INR 1.1 07/03/18 07:14 - Constitutional Appears: Non-toxic, No Acute Distress - Head Exam Head Exam: ATRAUMATIC, NORMAL INSPECTION, NORMOCEPHALIC - Eye Exam Eye Exam: EOMI, Normal appearance - ENT Exam ENT Exam: Mucous Membranes Moist, Normal Exam - Neck Exam Neck Exam: Normal Inspection - Respiratory Exam Respiratory Exam: Clear to Ausculation Bilateral, NORMAL BREATHING PATTERN - Cardiovascular Exam Cardiovascular Exam: REGULAR RHYTHM, +S1, +S2 - GI/Abdominal Exam GI & Abdominal Exam: Soft, Normal Bowel Sounds. absent: Distended, Tenderness - Extremities Exam Extremities Exam: Normal Capillary Refill, Pedal Edema (b/l). absent: Calf Tenderness - Neurological Exam Neurological Exam: Alert, Awake, Oriented x3 - Psychiatric Exam Psychiatric exam: Normal Affect, Normal Mood - Skin Skin Exam: Dry, Intact, Normal Color, Warm Assessment and Plan - Assessment and Plan (Free Text) Assessment: 58 year old female with acute renal failure requiring HD; surgery consulted for AVF Plan: -plan for AVF with Dr. Cosme Saturday -f/u vein mapping report -medical optimization per primary Discussed with Dr. Carmelina Marquez, PGY-1
[2018-07-04] MEDS ORDERED: Magnesium Oxide 400 mg Tab UD PO ONE (07:36)
[2018-07-04 08:48] LABS: BASO % 0.8 % (0.0-2.0); EOS # 0.1 K/uL (0.0-0.7); EOS % 3.5 % (0.0-4.0); HEMOGLOBIN 7.1 g/dL (11.0-16.0); LYMPH # 1.3 K/uL (1.0-4.3); MEAN CELL VOLUME 93.8 fL (81.0-99.0); MEAN CORPUSCULAR HEMOGLOBIN 30.6 pg (27.0-31.0); MEAN CORPUSCULAR HGB CONC 32.6 g/dL (33.0-37.0); MEAN PLATELET VOLUME 8.6 fL (7.2-11.7); MONO # 0.4 K/uL (0.0-0.8); MONO % 10.4 % (0.0-10.0); NEUT # 2.3 K/uL (1.8-7.0); NEUT % 54.3 % (50.0-75.0); RBC 2.31 Mil/uL (3.80-5.20); RED CELL DISTRIBUTION WIDTH 14.4 % (11.5-14.5); WHITE BLOOD COUNT 4.2 K/uL (4.8-10.8)
[2018-07-04 08:59] LABS: ALB/GLOB RATIO 1.1 (1.0-2.1); ALBUMIN 3.8 g/dL (3.5-5.0); CALCIUM 8.1 mg/dl (8.6-10.4)
--- NOTE | 2018-07-04 09:41 | CP.PCM.PN ---
Addendum entered and electronically signed by Chichi Barnett MD 07/04/18 17:22: Spoke to DR Dueñas . we will start on Epogen 10,000units weekly starting on Saturday Original Note: <JanuaryShawnrafaelamaria isabel - Last Filed: 07/04/18 15:44> Subjective - Date & Time of Evaluation Date of Evaluation: 07/04/18 Time of Evaluation: 09:39 - Subjective Subjective: Mira Sin PGY [address] Barnett Pt was examined at bedside this morning. She had no complaints. She says she is able to urinate without any trouble. She reported possible surgery scheduled for Saturday or Saturday. She denied any headache, dizziness, shortness of breath, chest pain, abdominal pain, nausea, vomiting, diarrhea, dysuria. Objective - Vital Signs/Intake and Output Vital Signs (last 24 hours): Temp Pulse Resp BP Pulse Ox 98.5 F 83 20 142/80 98 07/04/18 08:00 07/04/18 08:00 07/04/18 08:00 07/04/18 08:00 07/04/18 08:00 Intake and Output: 07/04/18 07/04/18 06:59 18:59 Intake Total 500 Output Total 300 Balance 200 - Medications Medications: Current Medications Amlodipine Besylate (Norvasc) 10 mg PO DAILY [facility] Last Admin: 07/04/18 09:22 Dose: 10 mg Heparin Sodium (Porcine) (Heparin) 5,000 units SC Q8 [facility] Last Admin: 07/04/18 06:01 Dose: 5,000 units Ceftriaxone Sodium 1 gm/ (Sodium Chloride) 100 mls @ 100 mls/hr IVPB Q24H [facility]; Protocol Last Admin: 07/03/18 17:09 Dose: 100 mls/hr Influenza Virus Vaccine (Fluzone Quad [id number]) 60 mcg IM .ONCE ONE Stop: 07/04/18 10:01 Last Admin: 07/04/18 09:24 Dose: 60 mcg Pneumococcal Polyvalent Vaccine (Pneumovax 23 Vaccine) 0.5 ml IM .ONCE ONE Stop: 07/04/18 10:01 Last Admin: 07/04/18 09:22 Dose: 0.5 ml Sevelamer Carbonate (Renvela) 800 mg PO TIDCC [facility] Last Admin: 07/04/18 08:11 Dose: 800 mg - Labs Labs: 07/04/18 08:27 07/04/18 08:27 PT 11.8 SECONDS (9.7-12.2) 07/03/18 07:14 INR 1.1 07/03/18 07:14 - Constitutional Appears: Well, No Acute Distress - Head Exam Head Exam: ATRAUMATIC, NORMOCEPHALIC - Eye Exam Eye Exam: EOMI, Normal appearance, PERRL Pupil Exam: NORMAL ACCOMODATION - ENT Exam ENT Exam: Mucous Membranes Moist, Normal Exam - Neck Exam Neck Exam: Normal Inspection - Respiratory Exam Respiratory Exam: Clear to Ausculation Bilateral, NORMAL BREATHING PATTERN. absent: Rales, Rhonchi, Wheezes, Respiratory Distress - Cardiovascular Exam Cardiovascular Exam: REGULAR RHYTHM, +S1, +S2. absent: Gallop, Rubs, Murmur - GI/Abdominal Exam GI & Abdominal Exam: Soft, Normal Bowel Sounds. absent: Distended, Firm, Tenderness - Extremities Exam Extremities Exam: Normal Inspection - Neurological Exam Neurological Exam: Alert, Awake, Oriented x3 - Psychiatric Exam Psychiatric exam: Normal Affect, Normal Mood - Skin Skin Exam: Dry Assessment and Plan - Assessment and Plan (Free Text) Assessment: Ms. Gem Campa is a 58 year old [place] Citizen female PMH HTN, anemia, ventral hernia was referred to [facility] by her fretted instrument inspector for abnormal labs, admitted for acute renal failure. Prospective AVF for Saturday or Saturday. Plan: Acute Renal Failure - BUN/Cr 78/7.1 - AVF placement Saturday/Saturday for future dialysis - Ceftriaxone 1gm IVPB daily (started 07/02: day 3) - d/c ceftriaxone tomorrow, 3 day treatment complete - likely due to chronic etiology - EKG on admission: NSR - CXR (07/02): no active disease - UA 07/03: LE 1+, WBC 22, negative nitrates, protein 2+ - UCx: contaminated - US kidney: hyperechogenecity suggestive of chronic changes - Hepatitis panel: negative - Complement studies: C3 99, C4 41 - ESR 99 elevated - CRP 7.7, nl - Vit D total 42, nl - f/u YANI, PTH - I/O: +200ml - weight: stable, 197 lb - Nephro consulted: Dr. Spenser pappas appreciated - Vascular Surgery consulted: Dr. Cosme Anemia - H&H 7.5/22.4 - known Hx of anemia - Fe 40 - TIBC 316 - %sat 13, low - Ferritin 103.0 - Stool Occult Blood neg - Ferrlicet 125mg IV daily as per nephro - EPO to be given after IV Fe, as per nephro Hyperphosphatemia - P 5.1 - start renvela 800mg PO TIDCC, as per nephro Hypertension - Amlodipine 10mg po daily - hold home Furosemide 40mg po daily PPx - DVT: Heparin 5000u sc q8, SCDs - GI: not indicated at this time - Diet: Renal diet - IVF held at this time Dispo: SW consulted for dialysis placement upon discharge Patient seen with and case reviewed with Dr. Barnett <Chichi Barnett - Last Filed: 07/04/18 17:20> Objective - Vital Signs/Intake and Output Vital Signs (last 24 hours): Temp Pulse Resp BP Pulse Ox 98.1 F 92 H 20 129/79 94 L 07/04/18 15:18 07/04/18 15:18 07/04/18 15:18 07/04/18 15:18 07/04/18 15:18 Intake and Output: 07/04/18 07/04/18 06:59 18:59 Intake Total 500 Output Total 300 Balance 200 - Medications Medications: Current Medications Amlodipine Besylate (Norvasc) 10 mg PO DAILY [facility] Last Admin: 07/04/18 09:22 Dose: 10 mg Heparin Sodium (Porcine) (Heparin) 5,000 units SC Q8 [facility] Last Admin: 07/04/18 13:19 Dose: 5,000 units Ceftriaxone Sodium 1 gm/ (Sodium Chloride) 100 mls @ 100 mls/hr IVPB Q24H [facility]; Protocol Stop: 07/05/18 15:00 Last Admin: 07/03/18 17:09 Dose: 100 mls/hr Ferric Sodium Gluconate Complex 125 mg/ Sodium Chloride 110 mls @ 110 mls/hr IVPB DAILY [facility] Stop: 07/12/18 11:01 Last Admin: 07/04/18 11:25 Dose: 110 mls/hr Sevelamer Carbonate (Renvela) 800 mg PO TIDCC [facility] Last Admin: 07/04/18 11:27 Dose: 800 mg - Labs Labs: 07/04/18 08:27 07/04/18 08:27 PT 11.8 SECONDS (9.7-12.2) 07/03/18 07:14 INR 1.1 07/03/18 07:14 Attending/Attestation - Attestation I have personally seen and examined this patient.: Yes I have fully participated in the care of the patient.: Yes I have reviewed all pertinent clinical information, including history, physical exam and plan: Yes Notes (Text): Seen and examined by me. Patient has renal failure likely chronic renal failure secondary to hypertension No nausea,no sob,no edema,no pruritus continue amlodipine and renagel. started on IV iron we will follow with fretted instrument inspector. her blood pressure is ok .we will start on epogen going for a-v graft on Saturday by surgery . s/p Vein mapping continue renal diet and water restriction d/w resident and I agree with the documentation
--- NOTE | 2018-07-04 09:52 | VASCLAB ---
Date of service: 07/03/2018 PROCEDURE: Upper Extremity Venous Mapping HISTORY: ESRD, VEIN MAPPING, PRE-OP AV FISTULA PRIORS: None. TECHNIQUE: Bilateral upper extremity, internal jugular, subclavian, axillary, brachial, ulnar, radial, basilic and upper cephalic veins were evaluated. Flow was assessed with color Doppler, compressibility, assessment of phasic flow and augmentation response. Report prepared by TUYET Cabezas FINDINGS: RIGHT: 1. Internal Jugular Vein: Compressibility - Fully compressible: Thrombus - None : Flow - Phasic 2. Subclavian Vein:Compressibility - Fully compressible: Thrombus - None : Flow - Phasic 3. Axillary Vein: Compressibility - Fully compressible: Thrombus - None 4. Brachial Vein: Compressibility - Fully compressible: Thrombus - None 5. Ulnar Vein:Compressibility - Fully compressible: Thrombus - None 6. Radial Vein:Compressibility - Fully compressible: Thrombus - None 7. Cephalic Vein: Compressibility - Fully compressible: thrombus - None 7.1. Upper Arm: Proximal Diameter: 0.28cm. Mid Diameter: 0.31cm. Distal Diameter: 0.23cm. 7.2. Forearm: Proximal Diameter: n/a mid Diameter:0.21cm. Distal Diameter: 0.14cm 8. Basilic Vein:Compressibility - Fully compressible: thrombus - None 8.1. Upper Arm:Proximal Diameter: 0.49cm. Mid Diameter: 0.26cm. Distal Diameter: 0.22cm. 8.2. Forearm: Diminutive. LEFT: 1. Internal Jugular Vein: Compressibility - Fully compressible: Thrombus - None : Flow - Phasic 2. Subclavian Vein:Compressibility - Fully compressible: Thrombus - None : Flow - Phasic 3. Axillary Vein: Compressibility - Fully compressible: Thrombus - None 4. Brachial Vein: Compressibility - Fully compressible: Thrombus - None 5. Ulnar Vein:Compressibility - Fully compressible: Thrombus - None 6. Radial Vein:Compressibility - Fully compressible: Thrombus - None 7. Cephalic Vein: Compressibility - Fully compressible: thrombus - None 7.1. Upper Arm: Proximal Diameter: 0.32cm. Mid Diameter: 0.27cm. Distal Diameter: 0.24cm. 7.2. Forearm: Proximal Diameter: 0.17cm. Mid Diameter:0.13cm. Distal Diameter: n/a 8. Basilic Vein:Compressibility - Fully compressible: thrombus - None 8.1. Upper Arm:Proximal Diameter: 0.32cm. Mid Diameter: 0.23cm. Distal Diameter: 0.16cm. 8.2. Forearm: Diminutive. OTHER FINDINGS: No evidence of venous thrombosis in bilateral upper extremities. IMPRESSION: Please refer to the above listed measurements for vein size.
[2018-07-04] MEDS ORDERED: Pneumococcal 23-Valent Vaccine IM ONE (10:00)
[2018-07-04] MEDS ORDERED: Influenza Vaccine 60 MCG/0.5 ML SYR (3 yr & up) IM ONE (10:00)
[2018-07-04] MEDS ORDERED: Ferric Sodium Gluconat Complex 62.5 mg/5 ml Vial IVPB SCH (10:30)
[2018-07-04] MEDS ORDERED: Epoetin Alfa Dialysis 20000 UNIT/ML Inj SC ONE (10:44)
[2018-07-04] MEDS: Ferric Sodium Gluconat Complex 125 MG in Sodium Chloride 0.9% 100 ML IVPB SCH (11:25)
--- NOTE | 2018-07-05 00:34 | CP.PCM.PN ---
<Gunnar Overton - Last Filed: 07/05/18 00:31> Subjective - Date & Time of Evaluation Date of Evaluation: 07/05/18 Time of Evaluation: 00:31 - Subjective Subjective: Mira Sin PGY [address] Barnett Pt was examined at bedside this evening. She had no complaints. She says she is able to urinate without any difficulty or dysuria. She denied any headache, dizziness, shortness of breath, chest pain, abdominal pain, nausea, vomiting, diarrhea, dysuria. Objective - Vital Signs/Intake and Output Vital Signs (last 24 hours): Temp Pulse Resp BP Pulse Ox 98.1 F 92 H 20 129/79 94 L 07/04/18 15:18 07/04/18 15:18 07/04/18 15:18 07/04/18 15:18 07/04/18 15:18 Intake and Output: 07/04/18 07/05/18 18:59 06:59 Intake Total 460 Balance 460 - Medications Medications: Current Medications Amlodipine Besylate (Norvasc) 10 mg PO DAILY [facility] Last Admin: 07/04/18 09:22 Dose: 10 mg Heparin Sodium (Porcine) (Heparin) 5,000 units SC Q8 [facility] Last Admin: 07/04/18 21:43 Dose: 5,000 units Ceftriaxone Sodium 1 gm/ (Sodium Chloride) 100 mls @ 100 mls/hr IVPB Q24H [facility]; Protocol Stop: 07/05/18 15:00 Last Admin: 07/04/18 17:15 Dose: 100 mls/hr Ferric Sodium Gluconate Complex 125 mg/ Sodium Chloride 110 mls @ 110 mls/hr IVPB DAILY [facility] Stop: 07/12/18 11:01 Last Admin: 07/04/18 11:25 Dose: 110 mls/hr Sevelamer Carbonate (Renvela) 800 mg PO TIDCC [facility] Last Admin: 07/04/18 17:15 Dose: 800 mg - Labs Labs: 07/04/18 08:27 07/04/18 08:27 PT 11.8 SECONDS (9.7-12.2) 07/03/18 07:14 INR 1.1 07/03/18 07:14 - Constitutional Appears: Well, No Acute Distress - Head Exam Head Exam: ATRAUMATIC, NORMAL INSPECTION - Eye Exam Eye Exam: EOMI, Normal appearance - ENT Exam ENT Exam: Mucous Membranes Moist, Normal Exam - Respiratory Exam Respiratory Exam: Clear to Ausculation Bilateral, NORMAL BREATHING PATTERN - Cardiovascular Exam Cardiovascular Exam: RRR, +S1, +S2. absent: Murmur - GI/Abdominal Exam GI & Abdominal Exam: Soft. absent: Tenderness - Neurological Exam Neurological Exam: Alert, Awake, CN II-XII Intact, Oriented x3 - Psychiatric Exam Psychiatric exam: Normal Affect, Normal Mood - Skin Skin Exam: Dry Assessment and Plan - Assessment and Plan (Free Text) Assessment: Acute Renal Failure - BUN/Cr 78/7.1 - AVF placement Saturday/Saturday for future dialysis - Ceftriaxone 1gm IVPB daily (started 07/02: day 3) - d/c ceftriaxone tomorrow, 3 day treatment complete - likely due to chronic etiology - EKG on admission: NSR - CXR (07/02): no active disease - UA 07/03: LE 1+, WBC 22, negative nitrates, protein 2+ - UCx: contaminated - US kidney: hyperechogenecity suggestive of chronic changes - Hepatitis panel: negative - Complement studies: C3 99, C4 41 - ESR 99 elevated - CRP 7.7, nl - Vit D total 42, nl - f/u YANI, PTH - I/O: +200ml - weight: stable, 197 lb - Nephro consulted: Dr. Spenser pappas appreciated - Vascular Surgery consulted: Dr. Cosme Anemia - H&H 7.5/22.4 - known Hx of anemia - Fe 40 - TIBC 316 - %sat 13, low - Ferritin 103.0 - Stool Occult Blood neg - Ferrlicet 125mg IV daily as per nephro - EPO to be given after IV Fe, as per nephro - Epogen 10,000units weekly starting on Saturday Hyperphosphatemia - P 5.1 - start renvela 800mg PO TIDCC, as per nephro Hypertension - Amlodipine 10mg po daily - hold home Furosemide 40mg po daily PPx - DVT: Heparin 5000u sc q8, SCDs - GI: not indicated at this time - Diet: Renal diet - IVF held at this time Dispo: TONY consulted for dialysis placement upon discharge Patient seen with and will review with Anibal <Chichi Barnett - Last Filed: 07/05/18 18:33> Objective - Vital Signs/Intake and Output Vital Signs (last 24 hours): Temp Pulse Resp BP Pulse Ox 97.8 F 98 H 20 147/78 97 07/05/18 16:00 07/05/18 16:00 07/05/18 16:00 07/05/18 16:00 07/05/18 16:00 Intake and Output: 07/05/18 07/05/18 06:59 18:59 Intake Total 460 640 Balance 460 640 - Medications Medications: Current Medications Amlodipine Besylate (Norvasc) 10 mg PO DAILY [facility] Last Admin: 07/05/18 09:51 Dose: 10 mg Heparin Sodium (Porcine) (Heparin) 5,000 units SC Q8 [facility] Last Admin: 07/05/18 13:16 Dose: 5,000 units Ferric Sodium Gluconate Complex 125 mg/ Sodium Chloride 110 mls @ 110 mls/hr IVPB DAILY [facility] Stop: 07/12/18 11:01 Last Admin: 07/05/18 10:07 Dose: 110 mls/hr Sevelamer Carbonate (Renvela) 800 mg PO TIDCC [facility] Last Admin: 07/05/18 17:52 Dose: 800 mg - Labs Labs: 07/05/18 08:27 07/05/18 08:27 PT 11.8 SECONDS (9.7-12.2) 07/03/18 07:14 INR 1.1 07/03/18 07:14 Attending/Attestation - Attestation I have personally seen and examined this patient.: Yes I have fully participated in the care of the patient.: Yes I have reviewed all pertinent clinical information, including history, physical exam and plan: Yes Notes (Text): Seen and examined by me,no complain,no nausea,no vomting,no dizziness,no sob lungs clear bun/Creatinine 83/7.3 Hb 6.9,not symptomatic.I will follow with telecommunicator about possible transfusion? getting Iron planning for A-V fistula on Saturday or Saturday. we will follow up with DR Vega
[2018-07-05 08:39] LABS: EOS # 0.1 K/uL (0.0-0.7); EOS % 4.3 % (0.0-4.0); HEMOGLOBIN 6.9 g/dL (11.0-16.0); LYMPH # 1.1 K/uL (1.0-4.3); LYMPH % 32.7 % (20.0-40.0); MEAN CELL VOLUME 94.6 fL (81.0-99.0); MEAN CORPUSCULAR HGB CONC 32.8 g/dL (33.0-37.0); MEAN PLATELET VOLUME 8.8 fL (7.2-11.7); MONO # 0.5 K/uL (0.0-0.8); MONO % 15.4 % (0.0-10.0); NEUT # 1.6 K/uL (1.8-7.0); NEUT % 46.6 % (50.0-75.0); NRBC % 0.1 % (0.0-2.0); RBC 2.23 Mil/uL (3.80-5.20); RED CELL DISTRIBUTION WIDTH 14.7 % (11.5-14.5); WHITE BLOOD COUNT 3.5 K/uL (4.8-10.8)
[2018-07-05 09:04] LABS: ALBUMIN 3.6 g/dL (3.5-5.0); CALCIUM 8.2 mg/dl (8.6-10.4)
[2018-07-05] MEDS ORDERED: Ferric Sodium Gluconat Complex 62.5 mg/5 ml Vial ONE (09:44)
[2018-07-05] MEDS: Ferric Sodium Gluconat Complex 125 MG in Sodium Chloride 0.9% 100 ML IVPB SCH (10:07)
--- NOTE | 2018-07-05 21:28 | CP.PCM.PN ---
Addendum entered and electronically signed by Gunnar Overton DO 07/06/18 03:24: 07/06 Progress Note Original Note: <Gunnar Overton - Last Filed: 07/06/18 03:21> Subjective - Date & Time of Evaluation Date of Evaluation: 07/06/18 Time of Evaluation: 03:21 - Subjective Subjective: PGY [address] Barnett Pt was examined at bedside. She had no complaints. Patient appears comfortable. She denied any headache, dizziness, shortness of breath, chest pain, abdominal pain, nausea, vomiting, diarrhea, dysuria. Objective - Vital Signs/Intake and Output Vital Signs (last 24 hours): Temp Pulse Resp BP Pulse Ox 97.8 F 98 H 20 147/78 97 07/05/18 16:00 07/05/18 16:00 07/05/18 16:00 07/05/18 16:00 07/05/18 16:00 Intake and Output: 07/05/18 07/06/18 18:59 06:59 Intake Total 640 Balance 640 - Medications Medications: Current Medications Amlodipine Besylate (Norvasc) 10 mg PO DAILY [facility] Last Admin: 07/05/18 09:51 Dose: 10 mg Heparin Sodium (Porcine) (Heparin) 5,000 units SC Q8 [facility] Last Admin: 07/05/18 13:16 Dose: 5,000 units Ferric Sodium Gluconate Complex 125 mg/ Sodium Chloride 110 mls @ 110 mls/hr IVPB DAILY [facility] Stop: 07/12/18 11:01 Last Admin: 07/05/18 10:07 Dose: 110 mls/hr Sevelamer Carbonate (Renvela) 800 mg PO TIDCC [facility] Last Admin: 07/05/18 17:52 Dose: 800 mg - Labs Labs: 07/05/18 08:27 07/05/18 08:27 PT 11.8 SECONDS (9.7-12.2) 07/03/18 07:14 INR 1.1 07/03/18 07:14 - Constitutional Appears: Non-toxic, No Acute Distress - Head Exam Head Exam: ATRAUMATIC, NORMAL INSPECTION - Eye Exam Eye Exam: EOMI, Normal appearance, PERRL - ENT Exam ENT Exam: Mucous Membranes Moist - Respiratory Exam Respiratory Exam: Clear to Ausculation Bilateral, NORMAL BREATHING PATTERN. absent: Wheezes - Cardiovascular Exam Cardiovascular Exam: RRR, +S1, +S2. absent: Murmur - GI/Abdominal Exam GI & Abdominal Exam: Soft, Normal Bowel Sounds. absent: Tenderness - Extremities Exam Extremities Exam: absent: Joint Swelling, Tenderness - Neurological Exam Neurological Exam: Alert, Awake, Oriented x3 - Psychiatric Exam Psychiatric exam: Normal Affect, Normal Mood - Skin Skin Exam: Dry Assessment and Plan - Assessment and Plan (Free Text) Assessment: Acute Renal Failure - BUN/Cr 78/7.1 - AVF placement Saturday/Saturday for future dialysis - Ceftriaxone 1gm IVPB daily (started 07/02: day 3) - d/c ceftriaxone tomorrow, 3 day treatment complete - likely due to chronic etiology - EKG on admission: NSR - CXR (07/02): no active disease - UA 07/03: LE 1+, WBC 22, negative nitrates, protein 2+ - UCx: contaminated - US kidney: hyperechogenecity suggestive of chronic changes - Hepatitis panel: negative - Complement studies: C3 99, C4 41 - ESR 99 elevated - CRP 7.7, nl - Vit D total 42, nl - f/u YANI, PTH - I/O: +200ml - weight: stable, 197 lb - Nephro consulted: Dr. Spenser pappas appreciated - Vascular Surgery consulted: Dr. Cosme Anemia - H&H 7.5/22.4 - known Hx of anemia - Fe 40 - TIBC 316 - %sat 13, low - Ferritin 103.0 - Stool Occult Blood neg - Ferrlicet 125mg IV daily as per nephro - EPO to be given after IV Fe, as per nephro - Epogen 10,000units weekly starting on Saturday Hyperphosphatemia - P 5.1 - start renvela 800mg PO TIDCC, as per nephro Hypertension - Amlodipine 10mg po daily - hold home Furosemide 40mg po daily PPx - DVT: Heparin 5000u sc q8, SCDs - GI: not indicated at this time - Diet: Renal diet - IVF held at this time Dispo: TONY consulted for dialysis placement upon discharge Patient seen with and will review with Anibal Overton, PGY-1 <Chichi Barnett - Last Filed: 07/06/18 20:34> Objective - Vital Signs/Intake and Output Vital Signs (last 24 hours): Temp Pulse Resp BP Pulse Ox 98.4 F 93 H 20 144/83 96 07/06/18 16:00 07/06/18 16:00 07/06/18 16:00 07/06/18 16:00 07/06/18 16:00 Intake and Output: 07/06/18 07/07/18 18:59 06:59 Intake Total 350 Balance 350 - Medications Medications: Current Medications Amlodipine Besylate (Norvasc) 10 mg PO DAILY [facility] Last Admin: 07/06/18 09:53 Dose: 10 mg Ferric Sodium Gluconate Complex 125 mg/ Sodium Chloride 110 mls @ 110 mls/hr IVPB DAILY [facility] Stop: 07/12/18 11:01 Last Admin: 07/06/18 09:53 Dose: 110 mls/hr Sevelamer Carbonate (Renvela) 800 mg PO TIDCC [facility] Last Admin: 07/06/18 17:31 Dose: 800 mg - Labs Labs: 07/06/18 08:36 07/06/18 08:36 PT 11.8 SECONDS (9.7-12.2) 07/03/18 07:14 INR 1.1 07/03/18 07:14 Attending/Attestation - Attestation I have personally seen and examined this patient.: Yes I have fully participated in the care of the patient.: Yes I have reviewed all pertinent clinical information, including history, physical exam and plan: Yes Notes (Text): Patient was seen on 07/06/18 no congestion,no nausea anemia stable going for A-V fistula on Saturday
[2018-07-06 08:43] LABS: BASO % 0.8 % (0.0-2.0); EOS # 0.2 K/uL (0.0-0.7); HEMOGLOBIN 7.4 g/dL (11.0-16.0); LYMPH # 1.2 K/uL (1.0-4.3); LYMPH % 24.1 % (20.0-40.0); MEAN CELL VOLUME 94.9 fL (81.0-99.0); MEAN CORPUSCULAR HEMOGLOBIN 30.9 pg (27.0-31.0); MEAN CORPUSCULAR HGB CONC 32.5 g/dL (33.0-37.0); MEAN PLATELET VOLUME 8.6 fL (7.2-11.7); MONO # 0.5 K/uL (0.0-0.8); NEUT # 2.9 K/uL (1.8-7.0); NEUT % 60.1 % (50.0-75.0); NRBC % 0.1 % (0.0-2.0); RBC 2.38 Mil/uL (3.80-5.20); WHITE BLOOD COUNT 4.8 K/uL (4.8-10.8)
[2018-07-06 09:05] LABS: ALB/GLOB RATIO 1.1 (1.0-2.1); CALCIUM 8.6 mg/dl (8.6-10.4)
[2018-07-06] MEDS: Ferric Sodium Gluconat Complex 125 MG in Sodium Chloride 0.9% 100 ML IVPB SCH (09:53)
[2018-07-07 06:57] LABS: BASO % 0.8 % (0.0-2.0); EOS # 0.2 K/uL (0.0-0.7); EOS % 4.4 % (0.0-4.0); HEMOGLOBIN 6.8 g/dL (11.0-16.0); LYMPH % 22.8 % (20.0-40.0); MEAN CELL VOLUME 94.7 fL (81.0-99.0); MEAN CORPUSCULAR HEMOGLOBIN 30.7 pg (27.0-31.0); MEAN CORPUSCULAR HGB CONC 32.4 g/dL (33.0-37.0); MEAN PLATELET VOLUME 8.8 fL (7.2-11.7); MONO # 0.6 K/uL (0.0-0.8); MONO % 14.9 % (0.0-10.0); NEUT # 2.4 K/uL (1.8-7.0); NEUT % 57.1 % (50.0-75.0); NRBC % 0.1 % (0.0-2.0); RBC 2.2 Mil/uL (3.80-5.20); WHITE BLOOD COUNT 4.2 K/uL (4.8-10.8)
[2018-07-07 07:28] LABS: ALB/GLOB RATIO 1.2 (1.0-2.1); ALBUMIN 3.8 g/dL (3.5-5.0); CALCIUM 8.5 mg/dl (8.6-10.4)
--- NOTE | 2018-07-07 07:59 | CARD ---
APPROVED REPORT Date of service: 07/02/2018 EKG Measurement Heart [id number] <Conclusion> Normal sinus rhythm Possible Left atrial enlargement Low voltage QRS Nonspecific T wave abnormality Abnormal ECG
--- NOTE | 2018-07-07 08:46 | CP.PCM.PN ---
<Mira Sin - Last Filed: 07/07/18 15:04> Subjective - Date & Time of Evaluation Date of Evaluation: 07/07/18 Time of Evaluation: 08:43 - Subjective Subjective: Mira Sin PGY1 Progress Note for Dr. Chandler Pt was examined at bedside this morning. She has no complaints. She denies headache, shortness of breath, chest pain, abdominal pain, nausea, vomiting, diarrhea. Objective - Vital Signs/Intake and Output Vital Signs (last 24 hours): Temp Pulse Resp BP Pulse Ox 98.7 F 88 20 157/88 H 99 07/07/18 08:40 07/07/18 08:40 07/07/18 08:40 07/07/18 08:40 07/07/18 08:40 Intake and Output: 07/07/18 07/07/18 06:59 18:59 Intake Total 530 Balance 530 - Medications Medications: Current Medications Amlodipine Besylate (Norvasc) 10 mg PO DAILY [facility] Last Admin: 07/06/18 09:53 Dose: 10 mg Heparin Sodium (Porcine) (Heparin) 5,000 units SC Q8 [facility] Last Admin: 07/07/18 05:44 Dose: 5,000 units Ferric Sodium Gluconate Complex 125 mg/ Sodium Chloride 110 mls @ 110 mls/hr IVPB DAILY [facility] Stop: 07/12/18 11:01 Last Admin: 07/06/18 09:53 Dose: 110 mls/hr Sevelamer Carbonate (Renvela) 800 mg PO TIDCC [facility] Last Admin: 07/06/18 17:31 Dose: 800 mg - Labs Labs: 07/07/18 06:48 07/07/18 06:48 PT 11.8 SECONDS (9.7-12.2) 07/03/18 07:14 INR 1.1 07/03/18 07:14 - Additional Findings Additional findings: - Constitutional Appears: Well, No Acute Distress - Head Exam Head Exam: ATRAUMATIC, NORMOCEPHALIC - Eye Exam Eye Exam: EOMI, Normal appearance, PERRL Pupil Exam: NORMAL ACCOMODATION - ENT Exam ENT Exam: Mucous Membranes Moist, Normal Exam - Neck Exam Neck Exam: Normal Inspection - Respiratory Exam Respiratory Exam: Clear to Ausculation Bilateral, NORMAL BREATHING PATTERN. absent: Rales, Rhonchi, Wheezes, Respiratory Distress - Cardiovascular Exam Cardiovascular Exam: REGULAR RHYTHM, +S1, +S2. absent: Gallop, Rubs, Murmur - GI/Abdominal Exam GI & Abdominal Exam: Soft, Normal Bowel Sounds. absent: Distended, Firm, Tender ness - Extremities Exam Extremities Exam: Normal Inspection, no pedal edema - Neurological Exam Neurological Exam: Alert, Awake, Oriented x3 - Psychiatric Exam Psychiatric exam: Normal Affect, Normal Mood - Skin Skin Exam: Dry Assessment and Plan - Assessment and Plan (Free Text) Assessment: Ms. Gem Campa is a 58 year old [place] female PMH HTN, anemia, ventral hernia was referred to [facility] by her manager oncology for abnormal labs, admitted for acute renal failure. AVF for Saturday. Plan: Acute Renal Failure - BUN/Cr 82/7.2 - AVF placement Saturday for future dialysis - likely due to chronic etiology - EKG on admission: NSR - CXR (07/02): no active disease - UA 07/03: LE 1+, WBC 22, negative nitrates, protein 2+ - UCx: contaminated - US kidney: hyperechogenecity suggestive of chronic changes - Hepatitis panel: negative - Complement studies: C3: 99, C4: 41 - ESR 99 elevated - CRP 7.7, nl - Vit D total 42, nl - YANI neg - PTH 305, elevated - start epogen 10,000u weekly - Nephro consulted: Dr. Spenser pappas appreciated - Vascular Surgery consulted: Dr. Cosme Anemia - H&H 6.8/20.8 - known Hx of anemia - Fe 40 - TIBC 316 - %sat 13, low - Ferritin 103.0 - Stool Occult Blood neg - ordered 2u PRBC for today - f/u CXR and CBC after transfusion - Ferrlicet 125mg IV daily as per nephro - start epogen 10,000u weekly Hyperphosphatemia - P 5.3 - continue renvela 800mg PO TIDCC, as per nephro Hyperkalemia - K 5.3 - caexelate 30g once Hypertension - Amlodipine 10mg po daily - hold home Furosemide 40mg po daily PPx - DVT: hold heparin for OR - GI: not indicated at this time - NPO after midnight except meds - IVF held at this time Dispo: SW consulted for dialysis placement upon discharge Patient seen with and case reviewed with Dr. Chandler <Dani Chandler Karmen - Last Filed: 07/07/18 17:44> Objective - Vital Signs/Intake and Output Vital Signs (last 24 hours): Temp Pulse Resp BP Pulse Ox 98.3 F 88 20 132/75 97 07/07/18 15:55 07/07/18 15:55 07/07/18 15:55 07/07/18 15:55 07/07/18 15:55 Intake and Output: 07/07/18 07/07/18 06:59 18:59 Intake Total 530 Balance 530 - Medications Medications: Current Medications Amlodipine Besylate (Norvasc) 10 mg PO DAILY [facility] Last Admin: 07/07/18 09:50 Dose: 10 mg Ferric Sodium Gluconate Complex 125 mg/ Sodium Chloride 110 mls @ 110 mls/hr IVPB DAILY [facility] Stop: 07/12/18 11:01 Last Admin: 07/07/18 11:03 Dose: 110 mls/hr Sevelamer Carbonate (Renvela) 800 mg PO TIDCC [facility] Last Admin: 07/07/18 12:30 Dose: 800 mg - Labs Labs: 07/07/18 06:48 07/07/18 06:48 PT 11.8 SECONDS (9.7-12.2) 07/03/18 07:14 INR 1.1 07/03/18 07:14 Attending/Attestation - Attestation I have personally seen and examined this patient.: Yes I have fully participated in the care of the patient.: Yes I have reviewed all pertinent clinical information, including history, physical exam and plan: Yes Notes (Text): 07/07/18 17:43 Medical attending: Patient was seen and examined by me. Agree with the above note by the resident. The patient was not in any acute distress when I came and saw with the manager medical affairs. Patient is pending creation of AVF sometime tommorow. Hgb was lower slightly today - will transfuse PRBC chepet. Dani Chandler
[2018-07-07] MEDS: Ferric Sodium Gluconat Complex 125 MG in Sodium Chloride 0.9% 100 ML IVPB SCH (11:03)
[2018-07-07] MEDS ORDERED: EPOETIN ALFA 10,000 UNIT/ML ML SC ONE (11:11)
[2018-07-07] MEDS ORDERED: Sod Polystyrene Sulf 15 gm/60 ml Susp PO ONE (11:15)
--- NOTE | 2018-07-07 18:24 | RAD ---
Date of service: 07/07/2018 HISTORY: post blood transfusion COMPARISON: Chest radiograph dated 07/02/2018. FINDINGS: LUNGS: No active pulmonary disease. PLEURA: Left place alert pleural thickening versus effusion. No pneumothorax apparent. CARDIOVASCULAR: Aortic atherosclerotic calcification. OSSEOUS STRUCTURES: Unchanged. VISUALIZED UPPER ABDOMEN: Normal. OTHER FINDINGS: None. IMPRESSION: New left atelectasis versus pleural thickening versus effusion.
--- NOTE | 2018-07-07 18:43 | CP.PCM.PN ---
Subjective - Date & Time of Evaluation Date of Evaluation: 07/07/18 Time of Evaluation: 18:42 - Subjective Subjective: Surgery PT seen and examined. No acute events. Planned for OR tomorrow. Objective - Vital Signs/Intake and Output Vital Signs (last 24 hours): Temp Pulse Resp BP Pulse Ox 98.3 F 88 20 132/75 97 07/07/18 15:55 07/07/18 15:55 07/07/18 15:55 07/07/18 15:55 07/07/18 15:55 Intake and Output: 07/07/18 07/07/18 06:59 18:59 Intake Total 530 Balance 530 - Medications Medications: Current Medications Amlodipine Besylate (Norvasc) 10 mg PO DAILY [facility] Last Admin: 07/07/18 09:50 Dose: 10 mg Ferric Sodium Gluconate Complex 125 mg/ Sodium Chloride 110 mls @ 110 mls/hr IVPB DAILY [facility] Stop: 07/12/18 11:01 Last Admin: 07/07/18 11:03 Dose: 110 mls/hr Sevelamer Carbonate (Renvela) 800 mg PO TIDCC [facility] Last Admin: 07/07/18 17:44 Dose: 800 mg - Labs Labs: 07/07/18 06:48 07/07/18 06:48 PT 11.8 SECONDS (9.7-12.2) 07/03/18 07:14 INR 1.1 07/03/18 07:14 - Constitutional Appears: No Acute Distress - Head Exam Head Exam: ATRAUMATIC, NORMAL INSPECTION, NORMOCEPHALIC - Eye Exam Eye Exam: EOMI, Normal appearance, PERRL Pupil Exam: NORMAL ACCOMODATION, PERRL - ENT Exam ENT Exam: Mucous Membranes Moist, Normal Exam - Neck Exam Neck Exam: Full ROM, Normal Inspection. absent: Lymphadenopathy - Respiratory Exam Respiratory Exam: NORMAL BREATHING PATTERN - Cardiovascular Exam Cardiovascular Exam: REGULAR RHYTHM, +S1, +S2. absent: Murmur - GI/Abdominal Exam GI & Abdominal Exam: Soft, Normal Bowel Sounds. absent: Tenderness - Extremities Exam Extremities Exam: Full ROM, Normal Inspection - Neurological Exam Neurological Exam: Alert, Awake, CN II-XII Intact, Normal Gait, Oriented x3 - Psychiatric Exam Psychiatric exam: Normal Affect, Normal Mood - Skin Skin Exam: Dry, Intact, Normal Color, Warm Assessment and Plan - Assessment and Plan (Free Text) Assessment: PAPO AVF on NPO Transfuse DW Dr. Cosme
[2018-07-08 08:15] LABS: BASO % 0.7 % (0.0-2.0); EOS # 0.1 K/uL (0.0-0.7); EOS % 2.6 % (0.0-4.0); LYMPH # 1.1 K/uL (1.0-4.3); LYMPH % 18.6 % (20.0-40.0); MEAN CORPUSCULAR HEMOGLOBIN 30.6 pg (27.0-31.0); MEAN CORPUSCULAR HGB CONC 33.7 g/dL (33.0-37.0); MEAN PLATELET VOLUME 8.5 fL (7.2-11.7); MONO # 0.6 K/uL (0.0-0.8); MONO % 10.9 % (0.0-10.0); NEUT # 3.8 K/uL (1.8-7.0); NEUT % 67.2 % (50.0-75.0); RBC 3.12 Mil/uL (3.80-5.20); RED CELL DISTRIBUTION WIDTH 16.3 % (11.5-14.5); WHITE BLOOD COUNT 5.7 K/uL (4.8-10.8)
[2018-07-08 08:28] LABS: HEMOGLOBIN 9.6 g/dL (11.0-16.0); MEAN CELL VOLUME 90.9 fL (81.0-99.0)
[2018-07-08 08:29] LABS: PROTHROMBIN TIME 11.4 SECONDS (9.7-12.2)
[2018-07-08 08:55] LABS: ALB/GLOB RATIO 1.2 (1.0-2.1); ALBUMIN 4.2 g/dL (3.5-5.0)
[2018-07-08] MEDS ORDERED: HEPARIN-NS 5,000 UNITS/500 ML 5,000 UNIT/500 ML BAG IV ONE (10:50)
[2018-07-08] MEDS: Ferric Sodium Gluconat Complex 125 MG in Sodium Chloride 0.9% 100 ML IVPB SCH (11:02)
[2018-07-08] MEDS ORDERED: Sod Polystyrene Sulf 15 gm/60 ml Susp PO ONE (11:32)
[2018-07-08] MEDS ORDERED: ceFAZolin 1 gm FROZEN Premix 2 GM/100 ML ML IVPB ONE (13:41)
--- NOTE | 2018-07-08 14:25 | RAD ---
Date of service: 07/08/2018 HISTORY: s/p permacath COMPARISON: Chest radiograph dated 07/07/2018. FINDINGS: LUNGS: Right basilar atelectasis. No focal consolidation. PLEURA: No significant pleural effusion identified, no pneumothorax apparent. CARDIOVASCULAR: No aortic atherosclerotic calcification present. Cardiomediastinal silhouette stably enlarged. OSSEOUS STRUCTURES: Unchanged. VISUALIZED UPPER ABDOMEN: Normal. OTHER FINDINGS: None. IMPRESSION: Right basilar atelectasis. Tunneled hemodialysis catheter not visualized.
[2018-07-08] MEDS ORDERED: Midazolam 2 MG/2 ML VIAL ONE (14:43)
[2018-07-08] MEDS ORDERED: Propofol 10 mg/ml Inj (20 ML) ONE (14:47)
[2018-07-08] MEDS ORDERED: Lidocaine Hydrochloride 10 ML INJ ONE (14:49)
--- NOTE | 2018-07-08 15:06 | PCM.SURG1 ---
Surgeon's Initial Post Op Note - Surgeon's Notes Surgeon: cynthia Beverage Steward: 0 Type of Anesthesia: IV Sedation Anesthesia Administered By: roseline Pre-Operative Diagnosis: renal failure Operative Findings: cath to svc from right chest wall via right jugular Post-Operative Diagnosis: same Operation Performed: permacath right jugular with us guidance and fluoroscopy Specimen/Specimens Removed: 0 Estimated Blood Loss: EBL {In ML}: 10 Drains Used: No Drains Post-Op Condition: Good Date of Surgery/Procedure: 07/08/18 Time of Surgery/Procedure: 15:06
--- NOTE | 2018-07-08 15:37 | RAD ---
PROCEDURE: HISTORY: As above COMPARISON: None TECHNIQUE: Total fluoroscopic time utilized during the procedure: 13.5 seconds ; 2.33 mGy FINDINGS: Submitted images from the current procedure: 5 Please refer to the physician's notes performing the procedure. IMPRESSION: Less than 1 hour fluoroscopic time utilized during performance of the procedure
--- NOTE | 2018-07-08 15:55 | RAD ---
Date of service: 07/08/2018 HISTORY: pacu COMPARISON: 07/08/2018 at 0935 hr FINDINGS: LUNGS: Interval pulmonary venous congestion moderate-in the right lung.. Follow-up recommended PLEURA: Small right pleural effusion suggested. no pneumothorax apparent. CARDIOVASCULAR: No aortic atherosclerotic calcification present. Cardiomegaly. Moderate pulmonary venous congestion-right greater than left Right PermCath inserted tip cavoatrial junctions OSSEOUS STRUCTURES: No significant abnormalities. VISUALIZED UPPER ABDOMEN: Normal. OTHER FINDINGS: None. IMPRESSION: Interval right PermCath insertion. No pneumothorax tip position as above. Mild cardiomegaly. Interval inferred increased pulmonary venous congestion moderate on the right. Follow-up recommended
--- NOTE | 2018-07-08 16:12 | CP.PCM.PN ---
<Mira Sin - Last Filed: 07/08/18 16:15> Subjective - Date & Time of Evaluation Date of Evaluation: 07/08/18 Time of Evaluation: 10:00 - Subjective Subjective: Mira Sin PGY1 Progress Note for Dr. Chandler Pt was examined at bedside this morning. She had no complaints. She reported normal urination. She denied shortness of breath, chest pain, dizziness, abdominal pain, nausea, vomiting, diarrhea, dysuria. Objective - Vital Signs/Intake and Output Vital Signs (last 24 hours): Temp Pulse Resp BP Pulse Ox 97.4 F L 85 13 177/99 H 100 07/08/18 15:09 07/08/18 15:55 07/08/18 15:55 07/08/18 15:55 07/08/18 15:55 Intake and Output: 07/08/18 07/08/18 06:59 18:59 Intake Total 1375 300 Balance 1375 300 - Medications Medications: Current Medications Amlodipine Besylate (Norvasc) 10 mg PO DAILY [facility] Last Admin: 07/08/18 09:58 Dose: 10 mg Ferric Sodium Gluconate Complex 125 mg/ Sodium Chloride 110 mls @ 110 mls/hr IVPB DAILY [facility] Stop: 07/12/18 11:01 Last Admin: 07/08/18 11:02 Dose: 110 mls/hr Morphine Sulfate (Morphine) 1 mg IVP Q10M PRN PRN Reason: Pain, moderate (4-7) Stop: 07/08/18 17:12 Last Admin: 07/08/18 15:52 Dose: 1 mg Ondansetron HCl (Zofran Inj) 4 mg IVP ONCE PRN PRN Reason: Nausea/Vomiting Stop: 07/08/18 17:13 Sevelamer Carbonate (Renvela) 800 mg PO TIDCC [facility] Last Admin: 07/08/18 13:07 Dose: Not Given - Labs Labs: 07/08/18 08:08 07/08/18 08:08 PT 11.4 SECONDS (9.7-12.2) 07/08/18 08:08 INR 1.0 07/08/18 08:08 APTT 42 SECONDS (21-34) H 07/08/18 08:08 - Constitutional Appears: Well, No Acute Distress - Head Exam Head Exam: ATRAUMATIC, NORMOCEPHALIC - Eye Exam Eye Exam: EOMI, Normal appearance, PERRL Pupil Exam: NORMAL ACCOMODATION - ENT Exam ENT Exam: Mucous Membranes Moist, Normal Exam - Neck Exam Neck Exam: Normal Inspection - Respiratory Exam Respiratory Exam: Clear to Ausculation Bilateral, NORMAL BREATHING PATTERN. absent: Decreased Breath Sounds, Rales, Rhonchi, Wheezes, Respiratory Distress - Cardiovascular Exam Cardiovascular Exam: REGULAR RHYTHM, +S1, +S2. absent: Gallop, Rubs, Murmur - GI/Abdominal Exam GI & Abdominal Exam: Soft, Normal Bowel Sounds. absent: Distended, Firm, Tenderness - Extremities Exam Extremities Exam: Normal Inspection. absent: Pedal Edema - Back Exam Back Exam: NORMAL INSPECTION - Neurological Exam Neurological Exam: Alert, Awake, Oriented x3 - Psychiatric Exam Psychiatric exam: Normal Affect, Normal Mood - Skin Skin Exam: Dry Assessment and Plan - Assessment and Plan (Free Text) Assessment: Ms. Gem Campa is a 58 year old [place] female PMH HTN, anemia, ventral hernia was referred to [facility] by her internal audit consultant for abnormal labs, admitted for acute renal failure. S/p permacath POD #0. Plan: Acute Renal Failure - BUN/Cr 79/7.3 - s/p permacath POD #0 - likely due to chronic etiology - US kidney: hyperechogenecity suggestive of chronic changes - Hepatitis panel: negative - Complement studies: C3: 99, C4: 41 - ESR 99 elevated - CRP 7.7, nl - Vit D total 42, nl - YANI neg - PTH 305, elevated - epogen 10,000u weekly - Nephro consulted: Dr. Spenser pappas appreciated - Vascular Surgery consulted: Dr. Cosme Anemia - H&H 9.6/28.4, improved - known Hx of anemia - Fe 40 - TIBC 316 - %sat 13, low - Ferritin 103.0 - Stool Occult Blood neg - s/p 2u PRBC for today - Ferrlicet 125mg IV daily as per nephro - epogen 10,000u weekly Hyperphosphatemia - P 4.8, improved - continue renvela 800mg PO TIDCC, as per nephro Hypertension - Amlodipine 10mg po daily - hold home Furosemide 40mg po daily PPx - DVT: heparin 5000 SC q8h - GI: not indicated at this time - HHD Dispo: SW consulted for dialysis placement upon discharge Patient seen with and case reviewed with Dr. Chandler <Dani Chandler H - Last Filed: 07/08/18 16:45> Objective - Vital Signs/Intake and Output Vital Signs (last 24 hours): Temp Pulse Resp BP Pulse Ox 97.5 F L 88 18 176/94 H 96 07/08/18 16:20 07/08/18 16:20 07/08/18 16:20 07/08/18 16:20 07/08/18 16:20 Intake and Output: 07/08/18 07/08/18 06:59 18:59 Intake Total 1375 350 Balance 1375 350 - Medications Medications: Current Medications Amlodipine Besylate (Norvasc) 10 mg PO DAILY [facility] Last Admin: 07/08/18 09:58 Dose: 10 mg Heparin Sodium (Porcine) (Heparin) 5,000 units SC Q8 [facility] Ferric Sodium Gluconate Complex 125 mg/ Sodium Chloride 110 mls @ 110 mls/hr IVPB DAILY [facility] Stop: 07/12/18 11:01 Last Admin: 07/08/18 11:02 Dose: 110 mls/hr Morphine Sulfate (Morphine) 1 mg IVP Q10M PRN PRN Reason: Pain, moderate (4-7) Stop: 07/08/18 17:12 Last Admin: 07/08/18 15:52 Dose: 1 mg Ondansetron HCl (Zofran Inj) 4 mg IVP ONCE PRN PRN Reason: Nausea/Vomiting Stop: 07/08/18 17:13 Sevelamer Carbonate (Renvela) 800 mg PO TIDCC [facility] Last Admin: 07/08/18 13:07 Dose: Not Given - Labs Labs: 07/08/18 08:08 07/08/18 08:08 PT 11.4 SECONDS (9.7-12.2) 07/08/18 08:08 INR 1.0 07/08/18 08:08 APTT 42 SECONDS (21-34) H 07/08/18 08:08 Attending/Attestation - Attestation I have personally seen and examined this patient.: Yes I have fully participated in the care of the patient.: Yes I have reviewed all pertinent clinical information, including history, physical exam and plan: Yes Notes (Text): 07/08/18 16:44 Medical attending: Patient was seen and examined by me. Agree with the above note by the resident The patient was not in any acute distress. The patient had not yet gone to have the AVF and permacath placement when we came and rounded on her. Last night had 2 units of PRBC, the Hgb is improved now. thank you Dani Chandler
--- NOTE | 2018-07-08 18:45 | CP.PCM.PN ---
Subjective - Date & Time of Evaluation Date of Evaluation: 07/08/18 Time of Evaluation: 07:45 - Subjective Subjective: surgery progress note for Dr. Cosme Patient examined at bedside. No acute events overnight. Patient understands she is going for procedure today, AVF and Permacath. Patient denies chest pain, SOB, abdominal pain, diarrhea, nausea Objective - Vital Signs/Intake and Output Vital Signs (last 24 hours): Temp Pulse Resp BP Pulse Ox 97.5 F L 83 18 176/94 H 96 07/08/18 16:20 07/08/18 16:52 07/08/18 16:20 07/08/18 16:20 07/08/18 16:20 Intake and Output: 07/08/18 07/08/18 06:59 18:59 Intake Total 1375 350 Balance 1375 350 - Medications Medications: Current Medications Amlodipine Besylate (Norvasc) 10 mg PO DAILY [facility] Last Admin: 07/08/18 09:58 Dose: 10 mg Heparin Sodium (Porcine) (Heparin) 5,000 units SC Q8 [facility] Ferric Sodium Gluconate Complex 125 mg/ Sodium Chloride 110 mls @ 110 mls/hr IVPB DAILY [facility] Stop: 07/12/18 11:01 Last Admin: 07/08/18 11:02 Dose: 110 mls/hr Sevelamer Carbonate (Renvela) 800 mg PO TIDCC [facility] Last Admin: 07/08/18 17:06 Dose: 800 mg - Labs Labs: 07/08/18 08:08 07/08/18 08:08 PT 11.4 SECONDS (9.7-12.2) 07/08/18 08:08 INR 1.0 07/08/18 08:08 APTT 42 SECONDS (21-34) H 07/08/18 08:08 - Constitutional Appears: Non-toxic, No Acute Distress - Head Exam Head Exam: ATRAUMATIC, NORMAL INSPECTION, NORMOCEPHALIC - Eye Exam Eye Exam: EOMI, Normal appearance - ENT Exam ENT Exam: Mucous Membranes Moist, Normal Exam - Respiratory Exam Respiratory Exam: Clear to Ausculation Bilateral, NORMAL BREATHING PATTERN - Cardiovascular Exam Cardiovascular Exam: REGULAR RHYTHM. absent: Tachycardia - GI/Abdominal Exam GI & Abdominal Exam: Soft, Normal Bowel Sounds. absent: Distended - Extremities Exam Extremities Exam: Normal Inspection. absent: Calf Tenderness, Pedal Edema - Neurological Exam Neurological Exam: Alert, Awake, Normal Gait, Oriented x3 - Psychiatric Exam Psychiatric exam: Normal Affect, Normal Mood - Skin Skin Exam: Dry, Intact, Normal Color, Warm Assessment and Plan - Assessment and Plan (Free Text) Assessment: 58 year old female s/p permacath insertion for HD Plan: -pre-operatively transfused 2U PRBC for anemia -s/p permacath insertion -AVF not performed -medical management per primary Discussed with Dr. Carmelina Marquez, PGY-1
[2018-07-08] MEDS: guaiFENesin DM 100 mg-10 mg/5 ml UD PO PRN (21:48)
--- NOTE | 2018-07-09 01:57 | OP ---
PROCEDURE DATE: 07/08/2018 PREOPERATIVE DIAGNOSIS: Renal failure. POSTOPERATIVE DIAGNOSIS: Renal failure. PROCEDURE CARRIED OUT: Placement of Perm-A-Cath in right jugular vein with C-arm fluoroscopy, ultrasound-guided puncture, and micropuncture technique. SURGEON: Lyndon Cosme Jr., MD POLE INCISOR OPERATOR: None. ANESTHESIOLOGIST: Samreen Valdez CRNA INDICATIONS FOR PROCEDURE: The patient is a middle-aged woman with renal insufficiency, now requiring dialysis. OPERATIVE FINDINGS: Initially, we planned to place a fistula and [id number]. Because of high potassium level, high blood pressure and variety of other reasons, we simply proceeded with the placemen of the Perm-A-Cath, initiated dialysis and then we placed the fistula safely. Catheter was inserted uneventfully via the jugular vein. DESCRIPTION OF PROCEDURE: The patient was given local anesthesia. Using ultrasound guidance and micropuncture technique, the right jugular vein was cannulated. Under fluoroscopic control, the guidewire was advanced centrally. A sheath dilator was passed over this. The catheter was positioned in the right location. It was flushed with heparinized saline with good return. Blood loss to the procedure was 10 mL. Ultrasound imaging of the neck showed the vein was approximately 14 mm in diameter with normal compressibility and no intraluminal thrombosis. Lyndon Cosme Jr., MD
[2018-07-09 07:23] LABS: ALB/GLOB RATIO 1.2 (1.0-2.1); ALBUMIN 3.9 g/dL (3.5-5.0); CALCIUM 8.9 mg/dl (8.6-10.4)
[2018-07-09 07:40] LABS: BASO # 0.1 K/uL (0.0-0.2); BASO % 1.2 % (0.0-2.0); EOS # 0.2 K/uL (0.0-0.7); EOS % 2.3 % (0.0-4.0); HEMOGLOBIN 9.5 g/dL (11.0-16.0); LYMPH # 1.3 K/uL (1.0-4.3); LYMPH % 15.2 % (20.0-40.0); MEAN CORPUSCULAR HEMOGLOBIN 30.1 pg (27.0-31.0); MEAN CORPUSCULAR HGB CONC 33.1 g/dL (33.0-37.0); MEAN PLATELET VOLUME 9.8 fL (7.2-11.7); MONO # 0.8 K/uL (0.0-0.8); MONO % 9.5 % (0.0-10.0); NEUT # 6.1 K/uL (1.8-7.0); NEUT % 71.8 % (50.0-75.0); NRBC % 0.2 % (0.0-2.0); RBC 3.15 Mil/uL (3.80-5.20); RED CELL DISTRIBUTION WIDTH 16.5 % (11.5-14.5); WHITE BLOOD COUNT 8.5 K/uL (4.8-10.8)
[2018-07-09] MEDS: Ferric Sodium Gluconat Complex 125 MG in Sodium Chloride 0.9% 100 ML IVPB SCH (09:41)
--- NOTE | 2018-07-09 11:15 | CP.PCM.PN ---
Subjective - Date & Time of Evaluation Date of Evaluation: 07/09/18 Time of Evaluation: 11:12 - Subjective Subjective: SEEN ON RENAL F/U CRYFULL AND CONCERNED ABOUT HD SEEN ALONG WITH THE SURGICAL TEAM CONSENT WAS OBTAINED FROM PT THE ISSUES OF HD EXPLAINED TO PT THROUGH AN PICKLE CUTTER WILL GIVE HD TODAY AND AYAN JIMENEZ TO GET OUT PT HD SPOT WELL TO APPLY FOR INSURANCE Objective - Vital Signs/Intake and Output Vital Signs (last 24 hours): Temp Pulse Resp BP Pulse Ox 97.9 F 93 H 20 153/80 H 100 07/09/18 07:00 07/09/18 09:14 07/09/18 07:00 07/09/18 09:14 07/09/18 07:00 Intake and Output: 07/09/18 07/09/18 06:59 18:59 Intake Total 400 Balance 400 - Medications Medications: Current Medications Amlodipine Besylate (Norvasc) 10 mg PO DAILY [facility] Last Admin: 07/09/18 09:15 Dose: 10 mg Guaifenesin/Dextromethorphan (Robitussin Dm) 5 ml PO Q4H PRN PRN Reason: Cough Last Admin: 07/08/18 21:48 Dose: 5 ml Heparin Sodium (Porcine) (Heparin) 5,000 units SC Q8 [facility] Last Admin: 07/09/18 07:35 Dose: 5,000 units Ferric Sodium Gluconate Complex 125 mg/ Sodium Chloride 110 mls @ 110 mls/hr IVPB DAILY [facility] Stop: 07/12/18 11:01 Last Admin: 07/09/18 09:41 Dose: 110 mls/hr Sevelamer Carbonate (Renvela) 800 mg PO TIDCC [facility] Last Admin: 07/09/18 09:00 Dose: 800 mg - Labs Labs: 07/09/18 06:47 07/09/18 06:47 PT 11.4 SECONDS (9.7-12.2) 07/08/18 08:08 INR 1.0 07/08/18 08:08 APTT 42 SECONDS (21-34) H 07/08/18 08:08
--- NOTE | 2018-07-09 11:37 | CP.PCM.PN ---
<Mira Sin - Last Filed: 07/09/18 16:55> Subjective - Date & Time of Evaluation Date of Evaluation: 07/09/18 Time of Evaluation: 11:34 - Subjective Subjective: Mira Sin PGY1 Progress note for Dr. Chandler Pt was examined at bedside. Pt complained of some pain in the right side of the neck, where the permacath was inserted. She reported normal urination. She denied having any bowel movements since the procedure. She reported normal appetite. She denied any dizziness, headache, abdominal pain, chest pain, sh ortness of breath, nausea, vomiting. Objective - Vital Signs/Intake and Output Vital Signs (last 24 hours): Temp Pulse Resp BP Pulse Ox 97.9 F 93 H 20 153/80 H 100 07/09/18 07:00 07/09/18 09:14 07/09/18 07:00 07/09/18 09:14 07/09/18 07:00 Intake and Output: 07/09/18 07/09/18 06:59 18:59 Intake Total 400 Balance 400 - Medications Medications: Current Medications Amlodipine Besylate (Norvasc) 10 mg PO DAILY [facility] Last Admin: 07/09/18 09:15 Dose: 10 mg Guaifenesin/Dextromethorphan (Robitussin Dm) 5 ml PO Q4H PRN PRN Reason: Cough Last Admin: 07/08/18 21:48 Dose: 5 ml Heparin Sodium (Porcine) (Heparin) 5,000 units SC Q8 [facility] Last Admin: 07/09/18 07:35 Dose: 5,000 units Ferric Sodium Gluconate Complex 125 mg/ Sodium Chloride 110 mls @ 110 mls/hr IVPB DAILY [facility] Stop: 07/12/18 11:01 Last Admin: 07/09/18 09:41 Dose: 110 mls/hr Ibuprofen (Motrin Tab) 600 mg PO TID PRN PRN Reason: Pain, moderate (4-7) Sevelamer Carbonate (Renvela) 800 mg PO TIDCC [facility] Last Admin: 07/09/18 09:00 Dose: 800 mg - Labs Labs: 07/09/18 06:47 07/09/18 06:47 PT 11.4 SECONDS (9.7-12.2) 07/08/18 08:08 INR 1.0 07/08/18 08:08 APTT 42 SECONDS (21-34) H 07/08/18 08:08 - Constitutional Appears: Well, No Acute Distress - Head Exam Head Exam: ATRAUMATIC, NORMOCEPHALIC - Eye Exam Eye Exam: EOMI, Normal appearance Pupil Exam: NORMAL ACCOMODATION - ENT Exam ENT Exam: Mucous Membranes Moist, Normal Exam - Neck Exam Additional comments: permacath site clean, dry, intact - Respiratory Exam Respiratory Exam: Clear to Ausculation Bilateral, NORMAL BREATHING PATTERN. absent: Rales, Rhonchi, Wheezes, Respiratory Distress - Cardiovascular Exam Cardiovascular Exam: REGULAR RHYTHM, +S1, +S2. absent: Gallop, Rubs, Murmur - GI/Abdominal Exam GI & Abdominal Exam: Soft, Normal Bowel Sounds. absent: Distended, Firm, Tenderness - Extremities Exam Extremities Exam: absent: Pedal Edema - Neurological Exam Neurological Exam: Alert, Awake, Oriented x3 - Psychiatric Exam Psychiatric exam: Normal Affect, Normal Mood - Skin Skin Exam: Dry Assessment and Plan - Assessment and Plan (Free Text) Assessment: Ms. Gem Campa is a 58 year old [place] female PMH HTN, anemia, ventral hernia was referred to [facility] by her twister tender for abnormal labs, admitted for acute renal failure. S/p permacath POD #1. Plan: Acute Renal Failure - BUN/Cr 79/7.0 - s/p permacath POD #1 - likely due to chronic etiology - for HD today, then M/W/ schedule - kidney: hyperechogenecity suggestive of chronic changes - ESR 99 elevated - PTH 305, elevated - epogen 10,000u weekly - Nephro consulted: Dr. Spenser pappas appreciated - Vascular Surgery consulted: Dr. Cosme Anemia - H&H 9.5/28.6, improved - known Hx of anemia - Fe 40 - TIBC 316 - %sat 13, low - Ferritin 103.0 - Stool Occult Blood neg - s/p 2u PRBC - Ferrlicet 125mg IV daily as per nephro - epogen 10,000u weekly Hyperphosphatemia - P 4.9 - continue renvela 800mg PO TIDCC, as per nephro Hypertension - Amlodipine 10mg po daily - hold home Furosemide 40mg po daily PPx - DVT: heparin 5000 SC q8h - GI: not indicated at this time - HHD Dispo: SW consulted for dialysis placement upon discharge Patient seen with and case reviewed with Dr. Chandler <Dani Chandler H - Last Filed: 07/09/18 18:00> Objective - Vital Signs/Intake and Output Vital Signs (last 24 hours): Temp Pulse Resp BP Pulse Ox 98.0 F 97 H 20 166/96 H 99 07/09/18 17:20 07/09/18 17:57 07/09/18 17:20 07/09/18 17:57 07/09/18 17:20 Intake and Output: 07/09/18 07/09/18 06:59 18:59 Intake Total 400 Balance 400 - Medications Medications: Current Medications Amlodipine Besylate (Norvasc) 10 mg PO DAILY [facility] Last Admin: 07/09/18 09:15 Dose: 10 mg Guaifenesin/Dextromethorphan (Robitussin Dm) 5 ml PO Q4H PRN PRN Reason: Cough Last Admin: 07/09/18 13:03 Dose: 5 ml Heparin Sodium (Porcine) (Heparin) 5,000 units SC Q8 [facility] Last Admin: 07/09/18 13:03 Dose: 5,000 units Ferric Sodium Gluconate Complex 125 mg/ Sodium Chloride 110 mls @ 110 mls/hr IVPB DAILY [facility] Stop: 07/12/18 11:01 Last Admin: 07/09/18 09:41 Dose: 110 mls/hr Ibuprofen (Motrin Tab) 600 mg PO TID PRN PRN Reason: Pain, moderate (4-7) Sevelamer Carbonate (Renvela) 800 mg PO TIDCC [facility] Last Admin: 07/09/18 17:58 Dose: 800 mg - Labs Labs: 07/09/18 06:47 07/09/18 06:47 PT 11.4 SECONDS (9.7-12.2) 07/08/18 08:08 INR 1.0 07/08/18 08:08 APTT 42 SECONDS (21-34) H 07/08/18 08:08 Attending/Attestation - Attestation I have personally seen and examined this patient.: Yes I have fully participated in the care of the patient.: Yes I have reviewed all pertinent clinical information, including history, physical exam and plan: Yes Notes (Text): 07/09/18 17:59 Medical attending: Patient was seen and examined by me. Patient was seen with the biomedical instrument technician and I reviewed the above note by the resident and agree with the above. The patient was not in any acute distress when we came and saw her. She was now moved to She now has a permacath for HD and so at this time we will try to see when case workers can find placment for patient thank you Dani Chandler
[2018-07-09] MEDS: guaiFENesin DM 100 mg-10 mg/5 ml UD PO PRN (13:03)
--- NOTE | 2018-07-09 14:14 | CP.PCM.PN ---
Subjective - Date & Time of Evaluation Date of Evaluation: 07/09/18 Time of Evaluation: 14:11 - Subjective Subjective: 58 y/o female POD #1 s/p right IJ permacath placement, was seen and examined at bedside today. No acute events reported overnight. Patient states she is doing well. Patient states she has slight pain in the area near the permacath. Dres sing clean, dry, and intact. Patient denies chest pain, shortness of breath, nausea, vomiting, fever, or chills. Objective - Vital Signs/Intake and Output Vital Signs (last 24 hours): Temp Pulse Resp BP Pulse Ox 97.9 F 93 H 20 153/80 H 100 07/09/18 07:00 07/09/18 09:14 07/09/18 07:00 07/09/18 09:14 07/09/18 07:00 Intake and Output: 07/09/18 07/09/18 06:59 18:59 Intake Total 400 Balance 400 - Medications Medications: Current Medications Amlodipine Besylate (Norvasc) 10 mg PO DAILY [facility] Last Admin: 07/09/18 09:15 Dose: 10 mg Guaifenesin/Dextromethorphan (Robitussin Dm) 5 ml PO Q4H PRN PRN Reason: Cough Last Admin: 07/09/18 13:03 Dose: 5 ml Heparin Sodium (Porcine) (Heparin) 5,000 units SC Q8 [facility] Last Admin: 07/09/18 13:03 Dose: 5,000 units Ferric Sodium Gluconate Complex 125 mg/ Sodium Chloride 110 mls @ 110 mls/hr IVPB DAILY [facility] Stop: 07/12/18 11:01 Last Admin: 07/09/18 09:41 Dose: 110 mls/hr Ibuprofen (Motrin Tab) 600 mg PO TID PRN PRN Reason: Pain, moderate (4-7) Sevelamer Carbonate (Renvela) 800 mg PO TIDCC [facility] Last Admin: 07/09/18 12:26 Dose: 800 mg - Labs Labs: 07/09/18 06:47 07/09/18 06:47 PT 11.4 SECONDS (9.7-12.2) 07/08/18 08:08 INR 1.0 07/08/18 08:08 APTT 42 SECONDS (21-34) H 10/30/18 08:08 - Constitutional Appears: Well, Non-toxic, No Acute Distress - Head Exam Head Exam: ATRAUMATIC, NORMAL INSPECTION - Eye Exam Eye Exam: EOMI, Normal appearance Pupil Exam: NORMAL ACCOMODATION - ENT Exam ENT Exam: Mucous Membranes Moist, Normal Exam - Neck Exam Neck Exam: Normal Inspection Additional comments: Right IJ permacath in place. - Respiratory Exam Respiratory Exam: Clear to Ausculation Bilateral, NORMAL BREATHING PATTERN - Cardiovascular Exam Cardiovascular Exam: REGULAR RHYTHM, +S1, +S2 - GI/Abdominal Exam GI & Abdominal Exam: Soft, Normal Bowel Sounds. absent: Tenderness, Rebound - Rectal Exam Rectal Exam: Deferred - Extremities Exam Extremities Exam: Normal Inspection. absent: Calf Tenderness, Pedal Edema - Back Exam Back Exam: NORMAL INSPECTION. absent: CVA tenderness (L), CVA tenderness (R) - Neurological Exam Neurological Exam: Alert, Awake, Oriented x3 - Psychiatric Exam Psychiatric exam: Normal Affect, Normal Mood - Skin Skin Exam: Dry, Normal Color, Warm Assessment and Plan - Assessment and Plan (Free Text) Assessment: 58 y/o female POD #1 s/p right IJ permacath insertion is doing well. - Medical management per primary - monitor H/H - AVF planning outpatient - Encourage IS use - DVT ppx Will discuss with Dr. Carmelina Lawrence, PGY-3
[2018-07-09] MEDS ORDERED: Labetalol 5mg/ml (4ml) IVP STA (16:51)
[2018-07-10 06:26] LABS: BASO % 0.7 % (0.0-2.0); EOS # 0.3 K/uL (0.0-0.7); EOS % 4.4 % (0.0-4.0); HEMOGLOBIN 9.9 g/dL (11.0-16.0); MEAN CELL VOLUME 91.6 fL (81.0-99.0); MEAN CORPUSCULAR HGB CONC 32.8 g/dL (33.0-37.0); MEAN PLATELET VOLUME 8.5 fL (7.2-11.7); MONO # 0.8 K/uL (0.0-0.8); MONO % 11.9 % (0.0-10.0); NEUT # 4.5 K/uL (1.8-7.0); NRBC % 0.1 % (0.0-2.0); RBC 3.31 Mil/uL (3.80-5.20); RED CELL DISTRIBUTION WIDTH 16.7 % (11.5-14.5); WHITE BLOOD COUNT 6.6 K/uL (4.8-10.8)
[2018-07-10 06:46] LABS: ALB/GLOB RATIO 1.1 (1.0-2.1); ALBUMIN 3.6 g/dL (3.5-5.0); CALCIUM 8.6 mg/dl (8.6-10.4)
[2018-07-10] MEDS: Ferric Sodium Gluconat Complex 125 MG in Sodium Chloride 0.9% 100 ML IVPB SCH (09:28)
--- NOTE | 2018-07-10 09:35 | CP.PCM.PN ---
<Mira Sin - Last Filed: 07/10/18 15:44> Subjective - Date & Time of Evaluation Date of Evaluation: 07/10/18 Time of Evaluation: 09:21 - Subjective Subjective: Mira Sin PGY1 Progress Note for Dr. Chandler Pt was examined at bedside this morning. She reports continuation of her mild cough, and reports improvement of her neck pain. She reports normal urination without difficulty. She said she was able to tolerate dialysis well yesterday, without any dizziness, nausea, vomiting, shortness of breath, abdominal pain. Pt has no other complaints. When asked regarding knowledge of dialysis options at [place] , she claims she has been here for 20 years and does not know what the cost/process is in DR. Objective - Vital Signs/Intake and Output Vital Signs (last 24 hours): Temp Pulse Resp BP Pulse Ox 98.5 F 95 H 20 169/97 H 96 07/10/18 08:36 07/10/18 08:36 07/10/18 08:36 07/10/18 08:36 07/10/18 08:36 - Medications Medications: Current Medications Amlodipine Besylate (Norvasc) 10 mg PO DAILY [facility] Last Admin: 07/10/18 09:08 Dose: 10 mg Guaifenesin/Dextromethorphan (Robitussin Dm) 5 ml PO Q4H PRN PRN Reason: Cough Last Admin: 07/09/18 13:03 Dose: 5 ml Heparin Sodium (Porcine) (Heparin) 5,000 units SC Q8 [facility] Last Admin: 07/10/18 06:19 Dose: 5,000 units Ferric Sodium Gluconate Complex 125 mg/ Sodium Chloride 110 mls @ 110 mls/hr IVPB DAILY [facility] Stop: 07/12/18 11:01 Last Admin: 07/09/18 09:41 Dose: 110 mls/hr Ibuprofen (Motrin Tab) 600 mg PO TID PRN PRN Reason: Pain, moderate (4-7) Sevelamer Carbonate (Renvela) 800 mg PO TIDCC [facility] Last Admin: 07/10/18 09:00 Dose: 800 mg - Labs Labs: 07/10/18 06:11 07/10/18 06:11 PT 11.4 SECONDS (9.7-12.2) 07/08/18 08:08 INR 1.0 10/30/18 08:08 APTT 42 SECONDS (21-34) H 07/08/18 08:08 - Constitutional Appears: Well, No Acute Distress - Head Exam Head Exam: ATRAUMATIC, NORMOCEPHALIC - Eye Exam Eye Exam: EOMI, Normal appearance, PERRL Pupil Exam: NORMAL ACCOMODATION - ENT Exam ENT Exam: Mucous Membranes Moist - Neck Exam Additional comments: permacath site clean, dry, intact - Respiratory Exam Respiratory Exam: Clear to Ausculation Bilateral, NORMAL BREATHING PATTERN. absent: Rales, Rhonchi, Wheezes, Respiratory Distress - Cardiovascular Exam Cardiovascular Exam: REGULAR RHYTHM, +S1, +S2. absent: Gallop, Rubs, Murmur - GI/Abdominal Exam GI & Abdominal Exam: Soft, Normal Bowel Sounds. absent: Distended, Firm, Tenderness - Extremities Exam Extremities Exam: absent: Pedal Edema - Neurological Exam Neurological Exam: Alert, Awake, Oriented x3 - Psychiatric Exam Psychiatric exam: absent: Normal Affect, Normal Mood - Skin Skin Exam: absent: Warm Assessment and Plan - Assessment and Plan (Free Text) Plan: Ms. Gem Campa is a 58 year old [place] female PMH HTN, anemia, ventral hernia was referred to [facility] by her biomedical scientist for abnormal labs, admitted for acute renal failure. S/p permacath POD #1. Plan: Acute Renal Failure - BUN/Cr 43/4.7 - s/p permacath POD #2 - likely due to chronic etiology - s/p HD yesterday, for M// schedule - kidney: hyperechogenecity suggestive of chronic changes - ESR 99 elevated - PTH 305, elevated - epogen 10,000u weekly - Nephro consulted: Dr. Spenser pappas appreciated - Vascular Surgery consulted: Dr. Cosme Anemia - H&H 9.9/30.4, improved - known Hx of anemia - Fe 40 - TIBC 316 - %sat 13, low - Ferritin 103.0 - Stool Occult Blood neg - s/p 2u PRBC - Ferrlicet 125mg IV daily as per nephro - epogen 10,000u weekly Hyperphosphatemia - P 3.6 - continue renvela 800mg PO TIDCC, as per nephro Hypertension - Amlodipine 10mg po daily - start hydralazine 25 PO TID PPx - DVT: heparin 5000 SC q8h - GI: not indicated at this time - HHD Dispo: SW consulted for dialysis placement upon discharge. Questionable citizenship status, and pt uninsured. Patient seen with and case reviewed with Dr. Chandler <Dani Chandler H - Last Filed: 07/13/18 07:17> Objective - Vital Signs/Intake and Output Vital Signs (last 24 hours): Temp Pulse Resp BP Pulse Ox 98.3 F 92 H 20 144/93 H 98 07/13/18 00:46 07/13/18 00:46 07/13/18 00:46 07/13/18 00:46 07/13/18 00:46 Intake and Output: 07/13/18 07/13/18 06:59 18:59 Intake Total Balance - Medications Medications: Current Medications Amlodipine Besylate (Norvasc) 10 mg PO DAILY [facility] Last Admin: 07/12/18 09:15 Dose: Not Given Guaifenesin/Dextromethorphan (Robitussin Dm) 5 ml PO Q4H PRN PRN Reason: Cough Last Admin: 07/12/18 21:13 Dose: 5 ml Heparin Sodium (Porcine) (Heparin) 5,000 units SC Q8 [facility] Last Admin: 07/13/18 06:31 Dose: 5,000 units Ibuprofen (Motrin Tab) 600 mg PO TID PRN PRN Reason: Pain, moderate (4-7) Losartan Potassium (Cozaar) 25 mg PO DAILY [facility] Last Admin: 07/12/18 21:36 Dose: 25 mg Sevelamer Carbonate (Renvela) 800 mg PO TIDCC [facility] Last Admin: 07/12/18 17:52 Dose: 800 mg Vitamin B Complex/Vit C/Folic Acid (Nephro-Seamus) 1 tab PO 0800 [facility] Last Admin: 07/12/18 08:41 Dose: 1 tab - Labs Labs: 07/12/18 06:58 07/12/18 06:58 PT 11.4 SECONDS (9.7-12.2) 07/08/18 08:08 INR 1.0 07/08/18 08:08 APTT 42 SECONDS (21-34) H 07/08/18 08:08 Attending/Attestation - Attestation I have personally seen and examined this patient.: Yes I have fully participated in the care of the patient.: Yes I have reviewed all pertinent clinical information, including history, physical exam and plan: Yes Notes (Text): 07/13/18 07:15 Medical attending: Patient was seen and examined by me. Agree with the above note note by the resident The patient was not in any acute distress when we came and saw The dialysis cathter that was present appeared fine, no bleeding, no erethema at skin Currently pending dialysis placement - which may prove difficult considering her situation thank you Dani Chandler
[2018-07-10] MEDS: guaiFENesin DM 100 mg-10 mg/5 ml UD PO PRN ×2 (17:21→22:08)
--- NOTE | 2018-07-10 20:52 | CP.PCM.PN ---
Subjective - Date & Time of Evaluation Date of Evaluation: 07/10/18 Time of Evaluation: 13:00 - Subjective Subjective: SEEN ON RENAL F/U REVIEVED HER SECOND HD TRX FEELS IMPROVED Objective - Vital Signs/Intake and Output Vital Signs (last 24 hours): Temp Pulse Resp BP Pulse Ox 97.8 F 98 H 20 177/104 H 99 07/10/18 17:00 07/10/18 18:29 07/10/18 17:00 07/10/18 17:00 07/10/18 17:00 Intake and Output: 07/10/18 07/11/18 18:59 06:59 Intake Total 300 Balance 300 - Medications Medications: Current Medications Amlodipine Besylate (Norvasc) 10 mg PO DAILY [facility] Last Admin: 07/10/18 09:08 Dose: 10 mg Guaifenesin/Dextromethorphan (Robitussin Dm) 5 ml PO Q4H PRN PRN Reason: Cough Last Admin: 07/10/18 17:21 Dose: 5 ml Heparin Sodium (Porcine) (Heparin) 5,000 units SC Q8 [facility] Last Admin: 07/10/18 13:12 Dose: 5,000 units Hydralazine HCl (Apresoline) 25 mg PO TID [facility] Last Admin: 07/10/18 17:21 Dose: 25 mg Ferric Sodium Gluconate Complex 125 mg/ Sodium Chloride 110 mls @ 110 mls/hr IVPB DAILY [facility] Stop: 07/12/18 11:01 Last Admin: 07/10/18 09:28 Dose: 110 mls/hr Ibuprofen (Motrin Tab) 600 mg PO TID PRN PRN Reason: Pain, moderate (4-7) Sevelamer Carbonate (Renvela) 800 mg PO TIDCC [facility] Last Admin: 07/10/18 17:21 Dose: 800 mg Vitamin B Complex/Vit C/Folic Acid (Nephro-Seamus) 1 tab PO 0800 [facility] - Labs Labs: 07/10/18 06:11 07/10/18 06:11 PT 11.4 SECONDS (9.7-12.2) 07/08/18 08:08 INR 1.0 07/08/18 08:08 APTT 42 SECONDS (21-34) H 07/08/18 08:08 Assessment and Plan - Assessment and Plan (Free Text) Assessment: CKD PROCEEDING TO ESRD .. ON HD TTS HTN ANEMIA OF CKD .. RECIEVED 2 U PRBC C/O CURRENT CARE
[2018-07-10] MEDS ORDERED: Labetalol 5mg/ml (4ml) IVP STA (21:56)
--- NOTE | 2018-07-11 07:35 | CP.PCM.PN ---
Subjective - Date & Time of Evaluation Date of Evaluation: 07/11/18 Time of Evaluation: 07:31 - Subjective Subjective: Mira Sin PGY1 Progress Note for Dr. Maloney Pt was examined at bedside this morning. She reported continuation of her cough, which is dry. She says she feels dryness in her throat, that she has had for a while. She reports normal urination. She denies dizziness, shortness of breath, nausea, vomiting, abdominal pain. Objective - Vital Signs/Intake and Output Vital Signs (last 24 hours): Temp Pulse Resp BP Pulse Ox 97.8 F 89 20 144/83 96 07/11/18 00:12 07/11/18 00:12 07/11/18 00:12 07/11/18 00:12 07/11/18 00:12 Intake and Output: 07/11/18 07/11/18 06:59 18:59 Intake Total 400 Balance 400 - Medications Medications: Current Medications Amlodipine Besylate (Norvasc) 10 mg PO DAILY [facility] Last Admin: 07/10/18 09:08 Dose: 10 mg Guaifenesin/Dextromethorphan (Robitussin Dm) 5 ml PO Q4H PRN PRN Reason: Cough Last Admin: 07/10/18 22:08 Dose: 5 ml Heparin Sodium (Porcine) (Heparin) 5,000 units SC Q8 [facility] Last Admin: 07/11/18 05:54 Dose: 5,000 units Hydralazine HCl (Apresoline) 25 mg PO TID [facility] Last Admin: 07/10/18 17:21 Dose: 25 mg Ferric Sodium Gluconate Complex 125 mg/ Sodium Chloride 110 mls @ 110 mls/hr IVPB DAILY [facility] Stop: 07/12/18 11:01 Last Admin: 07/10/18 09:28 Dose: 110 mls/hr Ibuprofen (Motrin Tab) 600 mg PO TID PRN PRN Reason: Pain, moderate (4-7) Sevelamer Carbonate (Renvela) 800 mg PO TIDCC [facility] Last Admin: 07/10/18 17:21 Dose: 800 mg Vitamin B Complex/Vit C/Folic Acid (Nephro-Seamus) 1 tab PO 0800 [facility] - Labs Labs: 07/10/18 06:11 07/10/18 06:11 PT 11.4 SECONDS (9.7-12.2) 10/30/18 08:08 INR 1.0 07/08/18 08:08 APTT 42 SECONDS (21-34) H 07/08/18 08:08 - Constitutional Appears: Well, No Acute Distress - Head Exam Head Exam: ATRAUMATIC, NORMOCEPHALIC - Eye Exam Eye Exam: EOMI, Normal appearance, PERRL Pupil Exam: NORMAL ACCOMODATION - ENT Exam ENT Exam: Mucous Membranes Dry - Neck Exam Neck Exam: Normal Inspection Additional comments: permacath site clean, dry, intact - Respiratory Exam Respiratory Exam: Clear to Ausculation Bilateral, NORMAL BREATHING PATTERN. abs ent: Rales, Rhonchi, Wheezes - Cardiovascular Exam Cardiovascular Exam: REGULAR RHYTHM, +S1, +S2. absent: Gallop, Rubs, Murmur - GI/Abdominal Exam GI & Abdominal Exam: Soft, Normal Bowel Sounds. absent: Distended, Tenderness - Extremities Exam Extremities Exam: absent: Pedal Edema, Tenderness - Neurological Exam Neurological Exam: Alert, Awake, Oriented x3 - Psychiatric Exam Psychiatric exam: Normal Affect, Normal Mood - Skin Skin Exam: Dry Assessment and Plan - Assessment and Plan (Free Text) Assessment: Ms. Gem Campa is a 58 year old [place] female PMH HTN, anemia, ventral hernia was referred to [facility] by her mutuel clerk for abnormal labs, admitted for acute renal failure. S/p permacath 07/08, on HD T//. Plan: Acute Renal Failure - BUN/Cr 28/3.6, improved - s/p permacath 07/08 - likely due to chronic etiology - HD T// schedule - kidney: hyperechogenecity suggestive of chronic changes - ESR 99 elevated - PTH 305, elevated - P 3.3 - continue renvela 800mg PO TIDCC, as per nephro - epogen 10,000u weekly - Nephro consulted: Dr. Dueñas - elyse appreciated - Vascular Surgery consulted: Dr. Cosme - no intervention at this time Anemia - H&H 9.5/28.2, improved - known Hx of anemia - Fe 40 - TIBC 316 - %sat 13, low - Ferritin 103.0 - Stool Occult Blood neg - s/p 2u PRBC 07/07 - Ferrlicet 125mg IV daily as per nephro - epogen 10,000u weekly Hypertension - Amlodipine 10mg po daily - hydralazine 25 PO TID PPx - DVT: heparin 5000 SC q8h - GI: not indicated at this time - HHD Dispo: SW consulted for dialysis placement upon discharge. Questionable citizenship status. Patient seen with and case reviewed with Dr. Maloney
[2018-07-11 07:57] LABS: BASO % 0.3 % (0.0-2.0); EOS # 0.2 K/uL (0.0-0.7); EOS % 3.5 % (0.0-4.0); HEMOGLOBIN 9.5 g/dL (11.0-16.0); LYMPH # 1.1 K/uL (1.0-4.3); LYMPH % 17.2 % (20.0-40.0); MEAN CELL VOLUME 92.2 fL (81.0-99.0); MEAN CORPUSCULAR HEMOGLOBIN 30.9 pg (27.0-31.0); MEAN CORPUSCULAR HGB CONC 33.5 g/dL (33.0-37.0); MEAN PLATELET VOLUME 8.7 fL (7.2-11.7); MONO # 0.9 K/uL (0.0-0.8); MONO % 13.1 % (0.0-10.0); NEUT # 4.4 K/uL (1.8-7.0); NEUT % 65.9 % (50.0-75.0); NRBC % 0.1 % (0.0-2.0); RBC 3.06 Mil/uL (3.80-5.20); RED CELL DISTRIBUTION WIDTH 16.6 % (11.5-14.5); WHITE BLOOD COUNT 6.6 K/uL (4.8-10.8)
[2018-07-11 08:34] LABS: ALB/GLOB RATIO 1.1 (1.0-2.1); ALBUMIN 3.4 g/dL (3.5-5.0); CALCIUM 8.7 mg/dl (8.6-10.4)
[2018-07-11] MEDS: Multivitamin Vitamin B Complex (Nephro-Vite) Tab PO SCH (08:37)
[2018-07-11] MEDS: Ferric Sodium Gluconat Complex 125 MG in Sodium Chloride 0.9% 100 ML IVPB SCH (10:20)
[2018-07-11] MEDS: guaiFENesin DM 100 mg-10 mg/5 ml UD PO PRN ×2 (17:07→21:07)
--- NOTE | 2018-07-11 21:20 | CP.PCM.PN ---
Subjective - Date & Time of Evaluation Date of Evaluation: 07/11/18 Time of Evaluation: 16:00 - Subjective Subjective: ON HD T T S C/O CURRENT CARE Objective - Vital Signs/Intake and Output Vital Signs (last 24 hours): Temp Pulse Resp BP Pulse Ox 97.9 F 97 H 20 128/79 98 07/11/18 15:00 07/11/18 16:25 07/11/18 15:00 07/11/18 15:00 07/11/18 15:00 Intake and Output: 07/11/18 07/12/18 18:59 06:59 Intake Total 400 Balance 400 - Medications Medications: Current Medications Amlodipine Besylate (Norvasc) 10 mg PO DAILY [facility] Last Admin: 07/11/18 10:20 Dose: 10 mg Guaifenesin/Dextromethorphan (Robitussin Dm) 5 ml PO Q4H PRN PRN Reason: Cough Last Admin: 07/11/18 21:07 Dose: 5 ml Heparin Sodium (Porcine) (Heparin) 5,000 units SC Q8 [facility] Last Admin: 07/11/18 21:07 Dose: 5,000 units Ferric Sodium Gluconate Complex 125 mg/ Sodium Chloride 110 mls @ 110 mls/hr IVPB DAILY [facility] Stop: 07/12/18 11:01 Last Admin: 07/11/18 10:20 Dose: 110 mls/hr Ibuprofen (Motrin Tab) 600 mg PO TID PRN PRN Reason: Pain, moderate (4-7) Losartan Potassium (Cozaar) 25 mg PO DAILY [facility] Last Admin: 07/11/18 16:20 Dose: 25 mg Sevelamer Carbonate (Renvela) 800 mg PO TIDCC [facility] Last Admin: 07/11/18 17:07 Dose: 800 mg Vitamin B Complex/Vit C/Folic Acid (Nephro-Seamus) 1 tab PO 0800 [facility] Last Admin: 07/11/18 08:37 Dose: 1 tab - Labs Labs: 07/11/18 07:40 07/11/18 07:40 PT 11.4 SECONDS (9.7-12.2) 07/08/18 08:08 INR 1.0 07/08/18 08:08 APTT 42 SECONDS (21-34) H 07/08/18 08:08
--- NOTE | 2018-07-12 00:24 | CP.PCM.PN ---
<Adalid Donovan - Last Filed: 07/12/18 03:53> Subjective - Date & Time of Evaluation Date of Evaluation: 07/12/18 Time of Evaluation: 00:23 - Subjective Subjective: Progress note for Hospitalist service Patient seen and examined at bedside. She states she has no complaints currently. She denies fevers, chills, headache, dizziness, chest pain, shortness of breath, abdominal pain, nausea, vomiting, diarrhea, constipation, leg pain. Objective - Vital Signs/Intake and Output Vital Signs (last 24 hours): Temp Pulse Resp BP Pulse Ox 98.5 F 95 H 20 183/100 H 98 07/11/18 23:15 07/11/18 23:15 07/11/18 23:15 07/11/18 23:15 07/11/18 23:15 Intake and Output: 07/11/18 07/12/18 18:59 06:59 Intake Total 400 400 Balance 400 400 - Medications Medications: Current Medications Amlodipine Besylate (Norvasc) 10 mg PO DAILY [facility] Last Admin: 07/11/18 10:20 Dose: 10 mg Guaifenesin/Dextromethorphan (Robitussin Dm) 5 ml PO Q4H PRN PRN Reason: Cough Last Admin: 07/11/18 21:07 Dose: 5 ml Heparin Sodium (Porcine) (Heparin) 5,000 units SC Q8 [facility] Last Admin: 07/11/18 21:07 Dose: 5,000 units Ferric Sodium Gluconate Complex 125 mg/ Sodium Chloride 110 mls @ 110 mls/hr IVPB DAILY [facility] Stop: 07/12/18 11:01 Last Admin: 07/11/18 10:20 Dose: 110 mls/hr Ibuprofen (Motrin Tab) 600 mg PO TID PRN PRN Reason: Pain, moderate (4-7) Losartan Potassium (Cozaar) 25 mg PO DAILY [facility] Last Admin: 07/11/18 16:20 Dose: 25 mg Sevelamer Carbonate (Renvela) 800 mg PO TIDCC [facility] Last Admin: 07/11/18 17:07 Dose: 800 mg Vitamin B Complex/Vit C/Folic Acid (Nephro-Seamus) 1 tab PO 0800 [facility] Last Admin: 07/11/18 08:37 Dose: 1 tab - Labs Labs: 07/11/18 07:40 07/11/18 07:40 PT 11.4 SECONDS (9.7-12.2) 07/08/18 08:08 INR 1.0 07/08/18 08:08 APTT 42 SECONDS (21-34) H 07/08/18 08:08 - Constitutional Appears: Well, No Acute Distress - Head Exam Head Exam: ATRAUMATIC, NORMOCEPHALIC - Eye Exam Eye Exam: EOMI - ENT Exam ENT Exam: Mucous Membranes Moist - Neck Exam Neck Exam: Full ROM. absent: Tenderness - Respiratory Exam Respiratory Exam: Clear to Ausculation Bilateral. absent: Rales, Rhonchi, Wheezes, Respiratory Distress, Stridor Additional comments: permacath to right chest wall clean, dry and intact - Cardiovascular Exam Cardiovascular Exam: REGULAR RHYTHM, +S1, +S2. absent: Gallop, Rubs, Murmur - GI/Abdominal Exam GI & Abdominal Exam: Soft, Normal Bowel Sounds. absent: Firm, Guarding, Rigid, Tenderness - Extremities Exam Extremities Exam: Normal Capillary Refill. absent: Calf Tenderness, Pedal Edema, Tenderness - Back Exam Back Exam: absent: CVA tenderness (L), CVA tenderness (R) - Neurological Exam Neurological Exam: Alert, Awake, Oriented x3 - Psychiatric Exam Psychiatric exam: Normal Affect, Normal Mood - Skin Skin Exam: Dry, Intact, Warm Assessment and Plan - Assessment and Plan (Free Text) Plan: Assessment: 58 year old [place] female PMH HTN, anemia, ventral hernia was referred to [facility] by her gaggerman for abnormal labs, admitted for acute renal failure. S/p permacath 07/08, on HD T//. Plan Acute Renal Failure - BUN/Cr 28/3.6 yesterday, improved, awaiting AM labs - s/p right chest wall permacath 07/08 - likely due to chronic etiology - HD T// schedule - US kidney: hyperechogenecity suggestive of chronic changes - ESR 99 elevated - PTH 305, elevated - P 3.3 - continue renvela 800mg PO TIDCC, as per nephro - epogen 10,000u weekly - Nephro consulted: Dr. Dueñas - elyse appreciated - Vascular Surgery consulted: Dr. Cosme - no intervention at this time Anemia - H&H 9.5/28.2 yesterday, improved - awaiting AM labs - known Hx of anemia - Fe 40 - TIBC 316 - %sat 13, low - Ferritin 103.0 - Stool Occult Blood neg - s/p 2u PRBC 07/07 - Ferrlicet 125mg IV daily as per nephro - epogen 10,000u weekly Hypertension - Amlodipine 10mg po daily - hydralazine 25 PO TID PPx - DVT: heparin 5000 SC q8h - GI: not indicated at this time - HHD Dispo: SW consulted for dialysis placement upon discharge. Questionable citizenship status. Case discussed with Dr. Raul Donovan, PGY1 <Chichi Barnett - Last Filed: 07/12/18 14:56> Objective - Vital Signs/Intake and Output Vital Signs (last 24 hours): Temp Pulse Resp BP Pulse Ox 98.7 F 96 H 18 150/84 96 07/12/18 12:30 07/12/18 12:30 07/12/18 12:30 07/12/18 12:30 07/12/18 12:30 Intake and Output: 07/12/18 07/12/18 06:59 18:59 Intake Total 400 500 Balance 400 500 - Medications Medications: Current Medications Amlodipine Besylate (Norvasc) 10 mg PO DAILY [facility] Last Admin: 07/12/18 09:15 Dose: Not Given Guaifenesin/Dextromethorphan (Robitussin Dm) 5 ml PO Q4H PRN PRN Reason: Cough Last Admin: 07/12/18 13:00 Dose: 5 ml Heparin Sodium (Porcine) (Heparin) 5,000 units SC Q8 [facility] Last Admin: 07/12/18 13:00 Dose: 5,000 units Ibuprofen (Motrin Tab) 600 mg PO TID PRN PRN Reason: Pain, moderate (4-7) Losartan Potassium (Cozaar) 25 mg PO DAILY [facility] Last Admin: 07/12/18 09:15 Dose: Not Given Sevelamer Carbonate (Renvela) 800 mg PO TIDCC [facility] Last Admin: 07/12/18 13:00 Dose: 800 mg Vitamin B Complex/Vit C/Folic Acid (Nephro-Seamus) 1 tab PO 0800 [facility] Last Admin: 07/12/18 08:41 Dose: 1 tab - Labs Labs: 07/12/18 06:58 07/12/18 06:58 PT 11.4 SECONDS (9.7-12.2) 07/08/18 08:08 INR 1.0 07/08/18 08:08 APTT 42 SECONDS (21-34) H 07/08/18 08:08 Attending/Attestation - Attestation I have personally seen and examined this patient.: Yes I have fully participated in the care of the patient.: Yes I have reviewed all pertinent clinical information, including history, physical exam and plan: Yes Notes (Text): Seen and examined during dialysis patient has no complain. Tolerating dialysis continue amlodipine,lorsartan ,epogen and renvela I agree with the resident's assessment and the plan
[2018-07-12 07:34] LABS: BASO % 0.5 % (0.0-2.0); EOS # 0.3 K/uL (0.0-0.7); EOS % 5.2 % (0.0-4.0); HEMOGLOBIN 9.5 g/dL (11.0-16.0); LYMPH # 1.5 K/uL (1.0-4.3); LYMPH % 21.8 % (20.0-40.0); MEAN CELL VOLUME 93.3 fL (81.0-99.0); MEAN CORPUSCULAR HGB CONC 33.3 g/dL (33.0-37.0); MEAN PLATELET VOLUME 8.6 fL (7.2-11.7); MONO # 0.9 K/uL (0.0-0.8); MONO % 13.6 % (0.0-10.0); NEUT # 3.9 K/uL (1.8-7.0); NEUT % 58.9 % (50.0-75.0); NRBC % 0.1 % (0.0-2.0); RBC 3.05 Mil/uL (3.80-5.20); RED CELL DISTRIBUTION WIDTH 16.6 % (11.5-14.5); WHITE BLOOD COUNT 6.7 K/uL (4.8-10.8)
[2018-07-12 07:38] LABS: ALB/GLOB RATIO 1.1 (1.0-2.1); ALBUMIN 3.5 g/dL (3.5-5.0); CALCIUM 8.7 mg/dl (8.6-10.4)
[2018-07-12] MEDS: guaiFENesin DM 100 mg-10 mg/5 ml UD PO PRN ×3 (08:40→21:13)
[2018-07-12] MEDS: Multivitamin Vitamin B Complex (Nephro-Vite) Tab PO SCH (08:41)
[2018-07-12] MEDS: Ferric Sodium Gluconat Complex 125 MG in Sodium Chloride 0.9% 100 ML IVPB SCH (10:30)
--- NOTE | 2018-07-13 01:32 | CP.PCM.PN ---
<Adalid Donovan - Last Filed: 07/13/18 03:10> Subjective - Date & Time of Evaluation Date of Evaluation: 07/13/18 Time of Evaluation: 01:32 - Subjective Subjective: Progress note for Hospitalist service Patient seen and examined at bedside. She is sitting up in bed, talking on the phone and in no acute distress. She denies fevers, chills, headache, lightheadedness, chest pain, shortness of breath, abdominal pain, nausea, vomiting, diarrhea, leg pain. Objective - Vital Signs/Intake and Output Vital Signs (last 24 hours): Temp Pulse Resp BP Pulse Ox 98.3 F 92 H 20 144/93 H 98 07/13/18 00:46 07/13/18 00:46 07/13/18 00:46 07/13/18 00:46 07/13/18 00:46 Intake and Output: 07/12/18 07/13/18 18:59 05:59 Intake Total 500 500 Balance 500 500 - Medications Medications: Current Medications Amlodipine Besylate (Norvasc) 10 mg PO DAILY [facility] Last Admin: 07/12/18 09:15 Dose: Not Given Guaifenesin/Dextromethorphan (Robitussin Dm) 5 ml PO Q4H PRN PRN Reason: Cough Last Admin: 07/12/18 21:13 Dose: 5 ml Heparin Sodium (Porcine) (Heparin) 5,000 units SC Q8 [facility] Last Admin: 07/12/18 21:13 Dose: 5,000 units Ibuprofen (Motrin Tab) 600 mg PO TID PRN PRN Reason: Pain, moderate (4-7) Losartan Potassium (Cozaar) 25 mg PO DAILY [facility] Last Admin: 07/12/18 21:36 Dose: 25 mg Sevelamer Carbonate (Renvela) 800 mg PO TIDCC [facility] Last Admin: 07/12/18 17:52 Dose: 800 mg Vitamin B Complex/Vit C/Folic Acid (Nephro-Seamus) 1 tab PO 0800 [facility] Last Admin: 07/12/18 08:41 Dose: 1 tab - Labs Labs: 07/12/18 06:58 07/12/18 06:58 PT 11.4 SECONDS (9.7-12.2) 07/08/18 08:08 INR 1.0 07/08/18 08:08 APTT 42 SECONDS (21-34) H 07/08/18 08:08 - Constitutional Appears: Well, No Acute Distress - Head Exam Head Exam: ATRAUMATIC, NORMOCEPHALIC - Eye Exam Eye Exam: EOMI - ENT Exam ENT Exam: Mucous Membranes Moist - Neck Exam Neck Exam: Full ROM. absent: Tenderness, Thyromegaly - Respiratory Exam Respiratory Exam: Clear to Ausculation Bilateral. absent: Rales, Rhonchi, Wheezes, Respiratory Distress, Stridor Additional comments: permacath to right chest wall - Cardiovascular Exam Cardiovascular Exam: REGULAR RHYTHM, +S1, +S2. absent: Gallop, Rubs, Murmur - GI/Abdominal Exam GI & Abdominal Exam: Soft, Normal Bowel Sounds. absent: Distended, Firm, Guarding, Rigid, Tenderness, Organomegaly - Extremities Exam Extremities Exam: Normal Capillary Refill. absent: Calf Tenderness, Pedal Edema, Tenderness - Back Exam Back Exam: absent: CVA tenderness (L), CVA tenderness (R) - Neurological Exam Neurological Exam: Alert, Awake, Oriented x3 - Psychiatric Exam Psychiatric exam: Normal Affect, Normal Mood - Skin Skin Exam: Dry, Intact, Warm Assessment and Plan - Assessment and Plan (Free Text) Plan: Assessment: 58 year old [place] female with history of HTN, anemia, ventral hernia was referred to [facility] by her hotel guest service agent for abnormal labs, admitted for acute renal failure. S/p permacath 07/08, on HD T//. Plan Acute Renal Failure - BUN/Cr 41/4.6 yesterday prior to dialysis - s/p right chest wall permacath 07/08 - likely due to chronic etiology - HD T// schedule - kidney: hyperechogenecity suggestive of chronic changes - ESR 99 elevated - PTH 305, elevated - P 3.3 - continue renvela 800mg PO TIDCC, as per nephro - epogen 10,000u weekly - Nephro consulted: Dr. Dueñas - elyse appreciated - Vascular Surgery consulted: Dr. Cosme - no intervention at this time Anemia - H&H 9.5/28.4 yesterday, improved - awaiting AM labs - known Hx of anemia - Fe 40 - TIBC 316 - %sat 13, low - Ferritin 103.0 - Stool Occult Blood neg - s/p 2u PRBC 07/07 - Ferrlicet 125mg IV daily as per nephro - epogen 10,000u weekly Hypertension - Amlodipine 10mg po daily - hydralazine 25 PO TID PPx - DVT: heparin 5000 SC q8h - GI: not indicated at this time - HHD Dispo: SW consulted for dialysis placement upon discharge. Questionable citizenship status. Case discussed with Dr. Geraldine Donovan, PGY1 <Dani Chandler H - Last Filed: 07/13/18 12:36> Objective - Vital Signs/Intake and Output Vital Signs (last 24 hours): Temp Pulse Resp BP Pulse Ox 98.1 F 94 H 20 167/87 H 96 07/13/18 07:00 07/13/18 09:01 07/13/18 07:00 07/13/18 09:01 07/13/18 07:00 Intake and Output: 07/13/18 07/13/18 06:59 18:59 Intake Total Balance - Medications Medications: Current Medications Amlodipine Besylate (Norvasc) 10 mg PO DAILY [facility] Last Admin: 07/13/18 09:01 Dose: 10 mg Guaifenesin/Dextromethorphan (Robitussin Dm) 5 ml PO Q4H PRN PRN Reason: Cough Last Admin: 07/12/18 21:13 Dose: 5 ml Heparin Sodium (Porcine) (Heparin) 5,000 units SC Q8 [facility] Last Admin: 07/13/18 06:31 Dose: 5,000 units Ibuprofen (Motrin Tab) 600 mg PO TID PRN PRN Reason: Pain, moderate (4-7) Losartan Potassium (Cozaar) 25 mg PO DAILY [facility] Last Admin: 07/13/18 09:01 Dose: 25 mg Sevelamer Carbonate (Renvela) 800 mg PO TIDCC [facility] Last Admin: 07/13/18 08:28 Dose: 800 mg Vitamin B Complex/Vit C/Folic Acid (Nephro-Seamus) 1 tab PO 0800 [facility] Last Admin: 07/13/18 08:28 Dose: 1 tab - Labs Labs: 07/13/18 08:30 07/13/18 08:30 PT 11.4 SECONDS (9.7-12.2) 07/13/18 11:04 INR 1.0 07/13/18 11:04 APTT 48 SECONDS (21-34) H 07/13/18 11:04 Attending/Attestation - Attestation I have personally seen and examined this patient.: Yes I have fully participated in the care of the patient.: Yes I have reviewed all pertinent clinical information, including history, physical exam and plan: Yes Notes (Text): 07/13/18 12:33 Medical attending: Patient was seen and examined by me. Agree with the above note by the resident The patient was not in any acute distress when I came and saw and examined patient. She reports feeling well today, no acute complaints or concerns at this moment. The patient is currentlying pending outpatient placement - however as previously mentioned this may prove difficult - given the patient's situation. Dani Chandler
[2018-07-13] MEDS: Multivitamin Vitamin B Complex (Nephro-Vite) Tab PO SCH (08:28)
--- NOTE | 2018-07-13 08:42 | CP.PCM.PN ---
Subjective - Date & Time of Evaluation Date of Evaluation: 07/13/18 Time of Evaluation: 07:00 - Subjective Subjective: VASCULAR SURGERY PROGRESS NOTE FOR DR. HILL Patient seen and examined at bedside. She had dialysis yesterday via her Right Permacath. Pt aware of plan for surgery tomorrow. Objective - Vital Signs/Intake and Output Vital Signs (last 24 hours): Temp Pulse Resp BP Pulse Ox 98.1 F 100 H 20 179/97 H 96 07/13/18 07:00 07/13/18 07:37 07/13/18 07:00 07/13/18 07:00 07/13/18 07:00 Intake and Output: 07/13/18 07/13/18 06:59 18:59 Intake Total Balance - Medications Medications: Current Medications Amlodipine Besylate (Norvasc) 10 mg PO DAILY [facility] Last Admin: 07/12/18 09:15 Dose: Not Given Guaifenesin/Dextromethorphan (Robitussin Dm) 5 ml PO Q4H PRN PRN Reason: Cough Last Admin: 07/12/18 21:13 Dose: 5 ml Heparin Sodium (Porcine) (Heparin) 5,000 units SC Q8 [facility] Last Admin: 07/13/18 06:31 Dose: 5,000 units Ibuprofen (Motrin Tab) 600 mg PO TID PRN PRN Reason: Pain, moderate (4-7) Losartan Potassium (Cozaar) 25 mg PO DAILY [facility] Last Admin: 07/12/18 21:36 Dose: 25 mg Sevelamer Carbonate (Renvela) 800 mg PO TIDCC [facility] Last Admin: 07/13/18 08:28 Dose: 800 mg Vitamin B Complex/Vit C/Folic Acid (Nephro-Seamus) 1 tab PO 0800 [facility] Last Admin: 07/13/18 08:28 Dose: 1 tab - Labs Labs: 07/12/18 06:58 07/12/18 06:58 PT 11.4 SECONDS (9.7-12.2) 07/08/18 08:08 INR 1.0 07/08/18 08:08 APTT 42 SECONDS (21-34) H 07/08/18 08:08 - Constitutional Appears: Non-toxic, No Acute Distress - Neck Exam Additional comments: Right Permacath - Extremities Exam Additional comments: Left arm restrictions Assessment and Plan - Assessment and Plan (Free Text) Assessment: 58F with renal failure s/p Right IJ Permacath POD#5, plan for AV fistula tomorrow - NPO past midnight - AV Fistula tomorrow - Discussed plan with Dr. Carmelina Jha PGY-4
[2018-07-13 08:45] LABS: BASO % 0.6 % (0.0-2.0); EOS # 0.3 K/uL (0.0-0.7); EOS % 4.6 % (0.0-4.0); HEMOGLOBIN 9.5 g/dL (11.0-16.0); LYMPH # 1.3 K/uL (1.0-4.3); LYMPH % 18.7 % (20.0-40.0); MEAN CELL VOLUME 93.4 fL (81.0-99.0); MEAN CORPUSCULAR HEMOGLOBIN 30.8 pg (27.0-31.0); MEAN PLATELET VOLUME 8.8 fL (7.2-11.7); MONO # 0.9 K/uL (0.0-0.8); MONO % 12.6 % (0.0-10.0); NEUT # 4.4 K/uL (1.8-7.0); NEUT % 63.5 % (50.0-75.0); NRBC % 0.1 % (0.0-2.0); RBC 3.1 Mil/uL (3.80-5.20); RED CELL DISTRIBUTION WIDTH 16.9 % (11.5-14.5)
[2018-07-13 09:20] LABS: ALB/GLOB RATIO 1.1 (1.0-2.1); ALBUMIN 3.7 g/dL (3.5-5.0); CALCIUM 8.7 mg/dl (8.6-10.4)
[2018-07-13 11:19] LABS: PROTHROMBIN TIME 11.4 SECONDS (9.7-12.2)
[2018-07-13] MEDS: guaiFENesin DM 100 mg-10 mg/5 ml UD PO PRN (16:55)
[2018-07-14 06:49] LABS: BASO % 0.5 % (0.0-2.0); EOS # 0.3 K/uL (0.0-0.7); EOS % 4.8 % (0.0-4.0); HEMOGLOBIN 9.3 g/dL (11.0-16.0); LYMPH # 1.4 K/uL (1.0-4.3); LYMPH % 21.6 % (20.0-40.0); MEAN CELL VOLUME 94.3 fL (81.0-99.0); MEAN CORPUSCULAR HEMOGLOBIN 30.9 pg (27.0-31.0); MEAN CORPUSCULAR HGB CONC 32.8 g/dL (33.0-37.0); MEAN PLATELET VOLUME 8.6 fL (7.2-11.7); MONO # 0.8 K/uL (0.0-0.8); MONO % 12.7 % (0.0-10.0); NEUT % 60.4 % (50.0-75.0); RBC 2.99 Mil/uL (3.80-5.20); RED CELL DISTRIBUTION WIDTH 17.7 % (11.5-14.5); WHITE BLOOD COUNT 6.6 K/uL (4.8-10.8)
[2018-07-14 06:59] LABS: ALB/GLOB RATIO 1.2 (1.0-2.1); ALBUMIN 3.6 g/dL (3.5-5.0); CALCIUM 8.7 mg/dl (8.6-10.4)
[2018-07-14] MEDS: Multivitamin Vitamin B Complex (Nephro-Vite) Tab PO SCH (08:51)
--- NOTE | 2018-07-14 09:47 | CP.PCM.PN ---
<MelvinkyraMira - Last Filed: 07/14/18 14:29> Subjective - Date & Time of Evaluation Date of Evaluation: 07/14/18 Time of Evaluation: 09:43 - Subjective Subjective: Shawnrafaelamaria isabel Charleskyra PGY1 Progress Note for Dr. Barnett Pt was examined at bedside this morning. She reports feeling warm. She denies any nausea, vomiting, shortness of breath, chest pain, dysuria. Objective - Vital Signs/Intake and Output Vital Signs (last 24 hours): Temp Pulse Resp BP Pulse Ox 98.2 F 93 H 20 145/86 97 07/14/18 08:22 07/14/18 08:22 07/14/18 08:22 07/14/18 08:22 07/14/18 08:22 Intake and Output: 07/14/18 07/14/18 06:59 18:59 Intake Total 500 Balance 500 - Medications Medications: Current Medications Amlodipine Besylate (Norvasc) 10 mg PO DAILY [facility] Last Admin: 07/14/18 09:00 Dose: 10 mg Guaifenesin/Dextromethorphan (Robitussin Dm) 5 ml PO Q4H PRN PRN Reason: Cough Last Admin: 07/13/18 16:55 Dose: 5 ml Heparin Sodium (Porcine) (Heparin) 5,000 units SC Q8 [facility] Last Admin: 07/13/18 21:05 Dose: 5,000 units Ibuprofen (Motrin Tab) 600 mg PO TID PRN PRN Reason: Pain, moderate (4-7) Losartan Potassium (Cozaar) 25 mg PO DAILY [facility] Last Admin: 07/14/18 09:00 Dose: 25 mg Sevelamer Carbonate (Renvela) 800 mg PO TIDCC [facility] Last Admin: 07/14/18 08:51 Dose: 800 mg Vitamin B Complex/Vit C/Folic Acid (Nephro-Seamus) 1 tab PO 0800 [facility] Last Admin: 07/14/18 08:51 Dose: 1 tab - Labs Labs: 07/14/18 06:39 07/14/18 06:39 PT 11.4 SECONDS (9.7-12.2) 07/13/18 11:04 INR 1.0 07/13/18 11:04 APTT 48 SECONDS (21-34) H 07/13/18 11:04 - Additional Findings Additional findings: - Constitutional Appears: Well, No Acute Distress - Head Exam Head Exam: ATRAUMATIC, NORMOCEPHALIC - Eye Exam Eye Exam: EOMI, Normal appearance, PERRL Pupil Exam: NORMAL ACCOMODATION - ENT Exam ENT Exam: Mucous Membranes Dry - Neck Exam Neck Exam: Normal Inspection Additional comments: permacath site clean, dry, intact - Respiratory Exam Respiratory Exam: Clear to Ausculation Bilateral, NORMAL BREATHING PATTERN. absent: Rales, Rhonchi, Wheezes - Cardiovascular Exam Cardiovascular Exam: REGULAR RHYTHM, +S1, +S2. absent: Gallop, Rubs, Murmur - GI/Abdominal Exam GI & Abdominal Exam: Soft, Normal Bowel Sounds. absent: Distended, Tenderness - Extremities Exam Extremities Exam: absent: Pedal Edema, Tenderness - Neurological Exam Neurological Exam: Alert, Awake, Oriented x3 - Psychiatric Exam Psychiatric exam: Normal Affect, Normal Mood - Skin Skin Exam: Dry Assessment and Plan - Assessment and Plan (Free Text) Assessment: Ms. Gem Campa is a 58 year old [place] female PMH HTN, anemia, ventral hernia was referred to [facility] by her cork slabs sawyer for abnormal labs, admitted for acute renal failure. S/p permacath 07/08, on HD T//. Pt for OR for AVF today. Plan: Acute Renal Failure - BUN/Cr 45/5.5 - for AVF today - s/p permacath 07/08 - HD T// schedule - kidney: hyperechogenecity suggestive of chronic changes - ESR 99 elevated - PTH 305, elevated - continue renvela 800mg PO TIDCC, as per nephro - epogen 10,000u weekly - feosol 325 PO daily - Nephro consulted: Dr. Dueñas - elyse appreciated - Vascular Surgery consulted: Dr. Cosme - no intervention at this time Anemia - H&H 9.3/28.2, improved - known Hx of anemia - Fe 40 - TIBC 316 - %sat 13, low - Ferritin 103.0 - Stool Occult Blood neg - s/p 2u PRBC 07/07 - epogen 10,000u weekly - Vit B complex daily Hypertension - Amlodipine 10mg po daily - losartan 25mg PO BID PPx - DVT: heparin 5000 SC q8h, held for AVF - GI: not indicated at this time - NPO for AVF today Dispo: SW consulted for dialysis placement upon discharge. Questionable citizenship status. Patient seen with and case reviewed <Chichi Barnett - Last Filed: 07/16/18 16:37> Objective - Vital Signs/Intake and Output Vital Signs (last 24 hours): Temp Pulse Resp BP Pulse Ox 97.7 F 79 16 128/67 96 07/15/18 18:10 07/15/18 18:10 07/15/18 18:10 07/15/18 18:10 07/15/18 18:10 Intake and Output: 07/16/18 07/16/18 06:59 18:59 Intake Total 100 Balance 100 - Labs Labs: 07/15/18 07:41 07/14/18 06:39 PT 11.4 SECONDS (9.7-12.2) 07/13/18 11:04 INR 1.0 07/13/18 11:04 APTT 48 SECONDS (21-34) H 07/13/18 11:04 Attending/Attestation - Attestation I have personally seen and examined this patient.: Yes I have fully participated in the care of the patient.: Yes I have reviewed all pertinent clinical information, including history, physical exam and plan: Yes Notes (Text): Seen and examined. Plan discussed with hte resident and I agree with the notes
[2018-07-14] MEDS ORDERED: HEPARIN-NS 5,000 UNITS/500 ML 5,000 UNIT/500 ML BAG IV ONE (10:57)
[2018-07-14] MEDS ORDERED: ceFAZolin IV 1 gm in Dextrose 2 GM/100 ML BAG IVPB ONE (10:58)
[2018-07-14] MEDS ORDERED: Midazolam 2 MG/2 ML VIAL ONE (11:33)
[2018-07-14] MEDS ORDERED: Propofol 10 mg/ml Inj (20 ML) ONE (11:33)
[2018-07-14] MEDS ORDERED: Papaverine Hydrochloride 30 mg/ml (2ml) ONE (12:26)
[2018-07-14] MEDS ORDERED: Sodium Chloride 0.9% 1,000 ML IV ONE (13:36)
[2018-07-14] MEDS ORDERED: HYDROmorphone 0.5 mg/0.5 ml ISec IVP PRN (13:46)
[2018-07-14] MEDS ORDERED: Sodium Chloride 0.9% 500 ML IV ONE (14:08)
--- NOTE | 2018-07-14 15:04 | PCM.SURG1 ---
Surgeon's Initial Post Op Note - Surgeon's Notes Surgeon: Dr. Cosme Pin Setter: Dr. Jha PGY-4 Type of Anesthesia: General Endo Pre-Operative Diagnosis: Renal failure Operative Findings: palpable thrill Post-Operative Diagnosis: Renal failure Operation Performed: Left bracheocephalic AV fistula Specimen/Specimens Removed: none Estimated Blood Loss: EBL {In ML}: 40 Blood Products Given: N/A Drains Used: No Drains Post-Op Condition: Fair Date of Surgery/Procedure: 07/14/18 Time of Surgery/Procedure: 14:00
[2018-07-14] MEDS ORDERED: Oxycodone/Acetaminophen 5/325 mg Tab PO PRN (15:06)
[2018-07-14] MEDS: guaiFENesin DM 100 mg-10 mg/5 ml UD PO PRN (17:01)
--- NOTE | 2018-07-14 18:21 | CP.PCM.PN ---
Subjective - Date & Time of Evaluation Date of Evaluation: 07/14/18 Time of Evaluation: 14:00 - Subjective Subjective: SEEN ON RENAL F/U ON HD T T S S/P AVF BY DR HILL .. C/O CURRENT CARE S W TO [facility] FOR OUT PT HD CENTER Objective - Vital Signs/Intake and Output Vital Signs (last 24 hours): Temp Pulse Resp BP Pulse Ox 97.9 F 85 20 141/81 95 07/14/18 15:00 07/14/18 16:28 07/14/18 15:00 07/14/18 15:00 07/14/18 15:00 Intake and Output: 07/14/18 07/14/18 06:59 18:59 Intake Total 500 600 Balance 500 600 - Medications Medications: Current Medications Amlodipine Besylate (Norvasc) 10 mg PO DAILY [facility] Last Admin: 07/14/18 09:00 Dose: 10 mg Ferrous Sulfate (Feosol) 325 mg PO DAILY [facility] Guaifenesin/Dextromethorphan (Robitussin Dm) 5 ml PO Q4H PRN PRN Reason: Cough Last Admin: 07/14/18 17:01 Dose: 5 ml Heparin Sodium (Porcine) (Heparin) 5,000 units SC Q8 [facility] Last Admin: 07/13/18 21:05 Dose: 5,000 units Ibuprofen (Motrin Tab) 600 mg PO TID PRN PRN Reason: Pain, moderate (4-7) Losartan Potassium (Cozaar) 25 mg PO DAILY [facility] Last Admin: 07/14/18 09:00 Dose: 25 mg Oxycodone/Acetaminophen (Percocet 5/325 Mg Tab) 1 tab PO Q6H PRN PRN Reason: Pain, moderate (4-7) Stop: 07/17/18 15:07 Last Admin: 07/14/18 15:48 Dose: 1 tab Sevelamer Carbonate (Renvela) 800 mg PO TIDCC [facility] Last Admin: 07/14/18 17:01 Dose: 800 mg Vitamin B Complex/Vit C/Folic Acid (Nephro-Seamus) 1 tab PO 0800 [facility] Last Admin: 07/14/18 08:51 Dose: 1 tab - Labs Labs: 07/14/18 06:39 07/14/18 06:39 PT 11.4 SECONDS (9.7-12.2) 07/13/18 11:04 INR 1.0 07/13/18 11:04 APTT 48 SECONDS (21-34) H 07/13/18 11:04
[2018-07-15 07:49] LABS: BASO % 0.6 % (0.0-2.0); EOS # 0.1 K/uL (0.0-0.7); EOS % 2.2 % (0.0-4.0); HEMOGLOBIN 8.5 g/dL (11.0-16.0); LYMPH % 15.4 % (20.0-40.0); MEAN CELL VOLUME 94.5 fL (81.0-99.0); MEAN CORPUSCULAR HEMOGLOBIN 31.2 pg (27.0-31.0); MEAN PLATELET VOLUME 8.3 fL (7.2-11.7); MONO # 0.9 K/uL (0.0-0.8); MONO % 13.3 % (0.0-10.0); NEUT # 4.6 K/uL (1.8-7.0); NEUT % 68.5 % (50.0-75.0); NRBC % 0.1 % (0.0-2.0); RBC 2.71 Mil/uL (3.80-5.20); WHITE BLOOD COUNT 6.7 K/uL (4.8-10.8)
[2018-07-15] MEDS ORDERED: EPOETIN ALFA 10,000 UNIT/ML ML SC ONE (08:04)
[2018-07-15] MEDS: Multivitamin Vitamin B Complex (Nephro-Vite) Tab PO SCH (08:43)
--- NOTE | 2018-07-15 10:03 | OP ---
PROCEDURE DATE: 07/14/2018 PREOPERATIVE DIAGNOSIS: Renal failure. POSTOPERATIVE DIAGNOSIS: Renal failure. PROCEDURE CARRIED OUT: Brachiocephalic fistula in the branch of median antecubital vein, left elbow. SURGEON: Lyndon Cosme Jr., MD ENGRAVER HAND SOFT METALS: Hilda Jha DO TYPE OF ANESTHESIA: General anesthesia. ANESTHESIOLOGIST: Briana. INDICATIONS: The patient is a middle-aged woman with renal sufficiency, now requiring dialysis. Temporarily dialyzed with the use of a catheter. OPERATIVE FINDINGS: The vein was of good size, rather deep underneath the skin due to her body habitus. We carried out an anastomosis between the median anticubital vein and its adjacent branch in a [id number] fashion to the brachial artery above the bifurcation with resultant bidirectional flow into the cephalic vein which was a centimeter away. In addition, we disrupted the vein valves going down to the forearm in the proximal portion of the cephalic vein. DESCRIPTION OF PROCEDURE: The patient was given general anesthesia and intravenous antibiotics. Venodyne boots were applied. Using ultrasound, we dissected out the location of the vessels on the skin. We then dissected out the communicating branch from the brachial vein to the cephalic vein system and then anastomosed this in a fashion to the side end of the brachial artery. This was an end-to-side anastomosis and this was done using loop magnification and heparin anticoagulation. At the end of the procedure, there was a present pulse at the wrist although slightly diminished, and there was excellent flow to the fistula in a bidirectional fashion. After obtaining hemostasis, the wound was closed with nylon sutures in a layer closure. Blood loss was 25 mL. Operation carried out was brachiocephalic fistula of left elbow via the median anticubital vein branch. Lyndon Cosme Jr., MD cc: Sean Dueñas MD
--- NOTE | 2018-07-15 11:57 | CP.PCM.PN ---
Subjective - Date & Time of Evaluation Date of Evaluation: 07/15/18 Time of Evaluation: 06:50 - Subjective Subjective: Surgery progress note for Dr. Cosme Pt seen and examined at bedside this AM. No adverse events overnight. Patient reports some pain at the incision site but denies any pain in the hand, numbness, tingling, or focal weakness. Objective - Vital Signs/Intake and Output Vital Signs (last 24 hours): Temp Pulse Resp BP Pulse Ox 98.1 F 100 H 20 155/95 H 95 07/15/18 07:00 07/15/18 08:58 07/15/18 07:00 07/15/18 08:58 07/15/18 07:00 Intake and Output: 07/15/18 07/15/18 06:59 18:59 Intake Total 300 690 Balance 300 690 - Medications Medications: Current Medications Amlodipine Besylate (Norvasc) 10 mg PO DAILY [facility] Last Admin: 07/15/18 09:06 Dose: 10 mg Ferrous Sulfate (Feosol) 325 mg PO DAILY [facility] Last Admin: 07/15/18 09:05 Dose: 325 mg Guaifenesin/Dextromethorphan (Robitussin Dm) 5 ml PO Q4H PRN PRN Reason: Cough Last Admin: 07/14/18 17:01 Dose: 5 ml Heparin Sodium (Porcine) (Heparin) 5,000 units SC Q8 [facility] Last Admin: 07/13/18 21:05 Dose: 5,000 units Ibuprofen (Motrin Tab) 600 mg PO TID PRN PRN Reason: Pain, moderate (4-7) Last Admin: 07/15/18 08:42 Dose: 600 mg Losartan Potassium (Cozaar) 25 mg PO DAILY [facility] Last Admin: 07/15/18 09:05 Dose: 25 mg Oxycodone/Acetaminophen (Percocet 5/325 Mg Tab) 1 tab PO Q6H PRN PRN Reason: Pain, moderate (4-7) Stop: 07/17/18 15:07 Last Admin: 07/14/18 15:48 Dose: 1 tab Sevelamer Carbonate (Renvela) 800 mg PO TIDCC [facility] Last Admin: 07/15/18 08:43 Dose: 800 mg Vitamin B Complex/Vit C/Folic Acid (Nephro-Seamus) 1 tab PO 0800 [facility] Last Admin: 07/15/18 08:43 Dose: 1 tab - Labs Labs: 07/15/18 07:41 07/14/18 06:39 PT 11.4 SECONDS (9.7-12.2) 07/13/18 11:04 INR 1.0 07/13/18 11:04 APTT 48 SECONDS (21-34) H 07/13/18 11:04 - Constitutional Appears: Well, Non-toxic, No Acute Distress - Head Exam Head Exam: ATRAUMATIC, NORMOCEPHALIC - Eye Exam Eye Exam: Normal appearance. absent: Conjunctival injection, Scleral icterus - ENT Exam ENT Exam: Mucous Membranes Moist, Normal Oropharynx - Respiratory Exam Respiratory Exam: NORMAL BREATHING PATTERN. absent: Accessory Muscle Use, Respiratory Distress - Cardiovascular Exam Cardiovascular Exam: RRR - GI/Abdominal Exam GI & Abdominal Exam: Soft. absent: Distended - Extremities Exam Extremities Exam: absent: Calf Tenderness, Pedal Edema Additional comments: left upper extremity AVF with dressing intact with moderate amount of serosanguinous fluid saturation. bruit auscultated over AVF. left hand warm, normal capillary refill, gross neuromuscular exam intact - Neurological Exam Neurological Exam: Alert, Awake, Oriented x3 - Psychiatric Exam Psychiatric exam: Normal Affect, Normal Mood - Skin Skin Exam: Dry, Normal Color, Warm Assessment and Plan - Assessment and Plan (Free Text) Assessment: 58F POD#1 s/p AVF creation in left upper extremity Plan: Patient is clear for discharge from a surgical standpoint Continue to use permacath for HD Do not remove dressing Patient should follow up with Dr. Cosme in his office 1-2 weeks after discharge Do no use left arm for IV access No heavy lifting with left arm. PRN pain medications No further surgical intervention required at this time--re-contact as needed Discussed with Dr. Carmelina Maria, PGY2
--- NOTE | 2018-07-15 14:30 | CP.PCM.DIS ---
Provider - Provider Date of Admission: 07/02/18 13:43 Attending physician: Chichi Barnett MD Consults: Nephro: Spenser Vascular Surgery: Carmelina Time Spent in preparation of Discharge (in minutes): 70 Hospital Course - Lab Results Lab Results: Micro Results 07/03/18 07:27 Urine,Clean Catch Urine Culture - Final <10,000 CFU/ML. MULTIPLE SPECIES. PROBABLE CONTAMINATION. Most Recent Lab Values WBC 6.7 K/uL (4.8-10.8) 07/15/18 07:41 RBC 2.71 Mil/uL (3.80-5.20) L 07/15/18 07:41 Hgb 8.5 g/dL (11.0-16.0) L 07/15/18 07:41 Hct 25.6 % (34.0-47.0) L 07/15/18 07:41 MCV 94.5 fL (81.0-99.0) 07/15/18 07:41 MCH 31.2 pg (27.0-31.0) H 07/15/18 07:41 MCHC 33.0 g/dL (33.0-37.0) 07/15/18 07:41 RDW 17.0 % (11.5-14.5) H 07/15/18 07:41 Plt Count 179 K/uL (130-400) 07/15/18 07:41 MPV 8.3 fL (7.2-11.7) 07/15/18 07:41 Neut % (Auto) 68.5 % (50.0-75.0) 07/15/18 07:41 Lymph % (Auto) 15.4 % (20.0-40.0) L 07/15/18 07:41 [place] % (Auto) 13.3 % (0.0-10.0) H 07/15/18 07:41 Eos % (Auto) 2.2 % (0.0-4.0) 07/15/18 07:41 Baso % (Auto) 0.6 % (0.0-2.0) 07/15/18 07:41 Neut # (Auto) 4.6 K/uL (1.8-7.0) 07/15/18 07:41 Lymph # (Auto) 1.0 K/uL (1.0-4.3) 07/15/18 07:41 [place] # (Auto) 0.9 K/uL (0.0-0.8) H 07/15/18 07:41 Eos # (Auto) 0.1 K/uL (0.0-0.7) 07/15/18 07:41 Baso # (Auto) 0.0 K/uL (0.0-0.2) 07/15/18 07:41 ESR 95 mm/hr (0-20) H 07/03/18 07:14 Retic Count 3.1 % (0.5-1.5) H 07/02/18 14:07 PT 11.4 SECONDS (9.7-12.2) 07/13/18 11:04 INR 1.0 07/13/18 11:04 APTT 48 SECONDS (21-34) H 07/13/18 11:04 Sodium 137 mmol/L (132-148) 07/14/18 06:39 Potassium 5.0 mmol/L (3.6-5.2) 07/14/18 06:39 Chloride 102 mmol/L (98-107) 07/14/18 06:39 Carbon Dioxide 27 mmol/L (22-30) 07/14/18 06:39 Anion Gap 13 (10-20) 07/14/18 06:39 BUN 45 mg/dL (7-17) H 07/14/18 06:39 Creatinine 5.5 mg/dL (0.7-1.2) H 07/14/18 06:39 Est GFR ( Amer) 10 07/14/18 06:39 Est GFR (Non-Af Amer) 8 07/14/18 06:39 Random Glucose 78 mg/dL (65-105) 07/14/18 06:39 Calcium 8.7 mg/dl (8.6-10.4) 07/14/18 06:39 Phosphorus 4.2 mg/dL (2.5-4.5) 07/15/18 07:41 Magnesium 1.7 mg/dL (1.6-2.3) 07/15/18 07:41 Iron 40 ug/dL (37-170) 07/02/18 16:50 TIBC 316 ug/dL (250-450) 07/02/18 16:50 % Saturation 13 (20-55) L 07/02/18 16:50 Ferritin 103.0 ng/mL 07/02/18 14:07 Total Bilirubin 0.6 mg/dL (0.2-1.3) 07/14/18 06:39 AST 43 U/L (14-36) H 07/14/18 06:39 ALT 47 U/L (9-52) 07/14/18 06:39 Alkaline Phosphatase 117 U/L (38-126) 07/14/18 06:39 CK-MB (Mass) 2.19 ng/mL (0.0-3.38) 07/02/18 11:52 Troponin I 0.0150 ng/mL (0.00-0.120) 07/02/18 11:52 C-Reactive Protein 7.70 mg/L (0.0-9.9) 07/03/18 07:14 Total Protein 6.6 g/dL (6.3-8.3) 07/14/18 06:39 Albumin 3.6 g/dL (3.5-5.0) 07/14/18 06:39 Globulin 3.0 gm/dL (2.2-3.9) 07/14/18 06:39 Albumin/Globulin Ratio 1.2 (1.0-2.1) 07/14/18 06:39 Triglycerides 74 mg/dL (0-149) 07/03/18 07:14 Cholesterol 130 mg/dL (0-199) 07/03/18 07:14 LDL Cholesterol Direct 70 mg/dL (0-129) 07/03/18 07:14 HDL Cholesterol 38 mg/dL (30-70) 07/03/18 07:14 25-OH Vitamin D Total 42.0 NG/ML (30.0-100.0) 07/04/18 07:31 TSH 3rd Generation 1.56 mIU/L (0.46-4.68) 07/03/18 07:14 PTH Intact Whole Molec 305 pg/mL (14-64) H 07/04/18 09:50 Urine Color Straw (YELLOW) 07/03/18 07:27 Urine Clarity Clear (Clear) 07/03/18 07:27 Urine pH 6.0 (5.0-8.0) 07/03/18 07:27 Ur Specific [place] 1.011 (1.003-1.030) 07/03/18 07:27 Urine Protein 2+ mg/dL (NEGATIVE) H 07/03/18 07:27 Urine Glucose (UA) Normal mg/dL (Normal) 07/03/18 07:27 Urine Ketones Negative mg/dL (NEGATIVE) 07/03/18 07:27 Urine Blood Negative (NEGATIVE) 07/03/18 07:27 Urine Nitrate Negative (NEGATIVE) 07/03/18 07: Urine Bilirubin Negative (NEGATIVE) 07/03/18 07:27 Urine Urobilinogen Normal mg/dL (0.2-1.0) 07/03/18 07:27 Ur Leukocyte Esterase 1+ Shane/uL (Negative) H 07/03/18 07:27 Urine WBC (Auto) 22 /hpf (0-5) H 07/03/18 07:27 Urine RBC (Auto) 2 /hpf (0-3) 07/03/18 07:27 Ur Squamous Epith Cells 4 /hpf (0-5) 07/03/18 07:27 Urine Bacteria Rare (<OCC) 07/03/18 07:27 Stool Occult Blood Negative (NEGATIVE) 07/02/18 15:12 YANI Nuclear Membr Pat Negative (Negative) 07/03/18 07:14 Complement C3 99.0 mg/dL (88.0-165.0) 07/03/18 07:14 Complement C4 41.4 mg/dL (14.0-44.0) 07/03/18 07:14 Tot Complement (CH50) >60 U/mL (31-60) H 07/03/18 07:14 Hepatitis A IgM Ab Negative (NEGATIVE) 07/03/18 07:14 Hep Bs Antigen Negative (NEGATIVE) 07/03/18 07:14 Hep B Core IgM Ab Negative (NEGATIVE) 07/03/18 07:14 Hepatitis C Antibody Negative (NEGATIVE) 07/03/18 07:14 Blood Type O POSITIVE 07/07/18 12:45 Antibody Screen Negative 07/07/18 12:45 - Hospital Course Hospital Course: Upon Admission: Ms. Gem Campa is a 58 year old Spanish female with PMH of hypertension, anemia, and ventral hernia was sent to [facility] today from her market research senior project manager for acute renal failure. She has been followed by Dr. Dietrich of [place] when two weeks ago, routine labwork showed elevated BUN/Cr. She was refered to Dr. Dueñas who told her to come to the hospital today. She has no complaints. She regularly urinates about 3-4 per day and once overnight. Over the last year, she reports poor appetite and will occasionally vomit immediately after eating. This happens about once a month and last occurred yesterday; all discomfort resolves immediately after vomiting. She does report stress incontinence and prefers to wear a pad year round to catch her urine when she coughs or sneezes. Also admits to urinary retention most days. Pt was found to have a BUN/Cr of 88/6.5 and was admitted for acute kidney injury. Hospital Course: Pt was found to have a UA with + leukocyte esterase and completed 3 day course rocephin for UTI Renal US showed hyperechogenecity suggestive of chronic changes Nephrology was consulted and recommended epogen weekly, Ferrlicet infusions, and HD. Vascular Surgery was consulted and inserted a permacath on 07/08 and AVF on 07/14. Pt was found to have an Hb of 6.8 and received 2u of PRBCs. Hb increased to 9.5. Pt began HD on a / schedule. Pt tolerated HD well. Pt was deemed stable for discharge. Upon Discharge: Outpatient HD center was found for patient and they were deemed stable for discharge. She was instructed to follow up with her PMD and market research senior project manager within 1 week. Pt was instructed to continue on the HD schedule using the permacath and to leave the dressing on her AVF site. She was instructed to follow up with vascular surgery within 2 weeks, and to avoid heavy lifting with the L arm. Pt was instructed to take medications as prescribed. Pt understood instructions and was agreeable. Discharge Exam - Head Exam Head Exam: ATRAUMATIC, NORMOCEPHALIC - Eye Exam Eye Exam: EOMI, Normal appearance, PERRL Pupil Exam: NORMAL ACCOMODATION - ENT Exam ENT Exam: Mucous Membranes Moist - Neck Exam Additional comments: permacath site clean, dry, intact - Respiratory Exam Respiratory Exam: Clear to PA & Lateral, NORMAL BREATHING PATTERN. absent: Rales, Rhonchi, Wheezes - Cardiovascular Exam Cardiovascular Exam: REGULAR RHYTHM, +S1, +S2. absent: Gallop, Rubs, Systolic Murmur - GI/Abdominal Exam GI & Abdominal Exam: Normal Bowel Sounds, Soft. absent: Distended, Tenderness - Extremities Exam Additional comments: thrill, bruit L AVF clean/dry/intact - Neurological Exam Neurological exam: Alert, Oriented x3 - Psychiatric Exam Psychiatric exam: Normal Affect, Normal Mood - Skin Skin Exam: Dry Discharge Plan - Discharge Medications Prescriptions: amLODIPine [Norvasc] 10 mg PO DAILY 14 Days tab Ferrous Sulfate [Feosol] 325 mg PO DAILY 14 Days tab Losartan [Cozaar] 25 mg PO DAILY 14 Days tab Sevelamer Carbonate [Renvela] 800 mg PO TIDCC 14 Days tab Vitamin B Complex/Vit C/Folic [Nephro-Seamus] 1 tab PO 0800 14 Days tab - Follow Up Plan Condition: STABLE Disposition: HOME/ ROUTINE Instructions: End Stage Kidney Disease (DC), Normocytic Normochromic Anemia (DC) Additional Instructions: Please follow up with your primary care physician, Dr. Dietrich, within 1 week. Phone number . Please follow up with your market research senior project manager, Dr. Dueñas, within 1 week. Phone number . Please follow up with vascular surgery, Dr. Cosme, within 2 weeks. Phone number . Please do not remove the dressing. Please do not do any heavy lifting with your left arm. Please continue to use the permacath for hemodialysis. Please complete dialysis on tuesdays, , and saturdays at [facility] in [place]. Phone number . Please take the medications prescribed to you. Please return the the emergency department if you have worsening symptoms. Por favor keke urvashi jim con richards mdico de atencin primaria, el Dr. Dietrich, dentro de urvashi semana. Nmero de telfono . Por favor keke urvashi jim con richards nefrlogo, el Dr. Dueñas, dentro de urvashi semana. Nmero de telfono . Por favor, keke urvashi jim con ciruga vascular, Dr. Cosme, dentro de 2 semanas. Nmero de telfono . Por favor, no retire el apsito. Por favor, no hagas ningn trabajo pesado con tu brazo mike. Por favor contine usando el permacath para hemodilisis. Complete la dilisis los nayana, jueves y sbados en [facility] en [place]. Nmero de telfono . Por favor tome los medicamentos recetados a usted. Por favor devuelva el departamento de emergencias si tiene sntomas que empeoran. Referrals: Sean Dueñas MD [Staff Provider] - Lyndon Cosme Jr., MD [Staff Provider] -
[2018-07-15 15:59] VITALS: RESP 16
[2018-07-15 16:04] VITALS: O2SAT 96
[2018-07-15 18:31] VITALS: TEMP 97.7
[2018-07-15 18:37] VITALS: BP 164/84; PULSE 96
== END 2018-07-15 19:59 | disposition home or self-care (01) | DRG 470 ==
LOC: C.ER 11:11 → C.3T 13:43 → C.5S 07-08 16:28
PROVIDERS: ADMIT Internal Medicine; ATTEND Internal Medicine
PROC: 02HV33Z Insertion of Infusion Device into Superior Vena Cava, Percutaneous Approach (ICD-10-PCS; principal; 2018-07-08 12:30)
PROC: 5A1D70Z Performance of Urinary Filtration, Intermittent, Less than 6 Hours Per Day (ICD-10-PCS; 2018-07-09)
PROC: 5A1D70Z Performance of Urinary Filtration, Intermittent, Less than 6 Hours Per Day (ICD-10-PCS; 2018-07-10)
PROC: 5A1D70Z Performance of Urinary Filtration, Intermittent, Less than 6 Hours Per Day (ICD-10-PCS; 2018-07-11)
PROC: 5A1D70Z Performance of Urinary Filtration, Intermittent, Less than 6 Hours Per Day (ICD-10-PCS; 2018-07-12)
PROC: 0JHH3WZ Insertion of Totally Implantable Vascular Access Device into Left Lower Arm Subcutaneous Tissue and Fascia, Percutaneous Approach (ICD-10-PCS; 2018-07-14)
PROC: 05HA33Z Insertion of Infusion Device into Left Brachial Vein, Percutaneous Approach (ICD-10-PCS; 2018-07-14)
DX: I12.0 Hypertensive chronic kidney disease with stage 5 chronic kidney disease or end stage renal disease (principal); N17.9 Acute kidney failure, unspecified; D63.1 Anemia in chronic kidney disease; N18.6 End stage renal disease; N39.3 Stress incontinence (female) (male); Z99.2 Dependence on renal dialysis; N39.0 Urinary tract infection, site not specified; E83.39 Other disorders of phosphorus metabolism